=== PATIENT | female | born 1950 | race Caucasian/White ===

== ENCOUNTER → 2017-10-22 | Outpatient (CLI) | payer OTHER ==
[~2017-10-22] MED LIST: ADULT LOW DOSE81 MG PO; ALEVE220 M1 PO; AMOXICILLIN 50500 MG PO; ASPIR 8181 MG PO; ASPIRIN 81 MG T81 MG NG; ATIVAN0.5 M1 PO; AUGMENTIN 875-1 EACH; BACTRIM DS TAB1 EACH PO; BANOPHEN25 MG PO; BENTYL 20 MG TA20 M1 PO; BISAC-EVAC10 MG; CEFUROXIME250 MG PO; CENTRUM SILVER1 EAC1 PO; CEPHALEXIN 250250 M1 PO; CIPROFLOXACIN500 M1 PO; ELAVIL PO; FERROUS SU; FLEET ENEMA RE; HYDROCHLOROTHIA25 M1 PO; HYDROCHLOROTHIA25 M2 PO; HYDROCODON-ACE1 EAC5 PO; HYDROCODON-ACE1 EAC7 PO; HYDROXYCHLOROQ200 M1 PO; HYOSCYAMINE0.125 M1 PO; IMDUR 30 MG TAB30 M1 PO; IRON325; KEFLEX500 MG PO; LEVAQUIN 500 M500 M1 PO; LEVAQUIN 500 M500 M3 PO; LEVAQUIN 750 M750 MG PO; LOPRESSOR PO; LOPRESSOR25 PO; MAGNESIUM400 MG PO; MEDROLDOSEPACK PO; METOPROLOL 50 M50 M1 PO; MIRALAX PO; MIRALAX17 GM PO; MOM PO; MUCINEX TA600 MG/TA2 PO; MULTIVITAMINS PO; MULTIVITAMINS1 EAC7 PO; NEURONTIN 300300 M1 PO; NEURONTIN600 MG PO; NITROQUICK0.4 MG SL; NORCO 5-325 TA1 EACH PO; NORFLEX100 MG PO; NYSTATIN15 GM TOP; OMEPRAZOLE PO; ONDANSETRON HCL4 M2 PO; OXYIR5 MG; PEPCID20 MG PO; PERCOCET PO; PHENAZOPYRIDIN200 M2 PO; PHENERGAN 25 MG25 M1 PO; PHILLIPS' LAXA100 MG PO; PHILLIPS500 MG PO; POTASSIUM CHLO10 ME1 PO; POTASSIUM20; POTASSIUM20 PO; PREDNISONE 10 M10 M1 PO; PREDNISONE 10 M10 MG PO; PREDNISONE 20 M20 MG PO; PROMS25 WY RECTAL; PROTONIX40 M1 PO; PROTONIX40 M2 PO; PULMICORT0.5 MG/22 INH; REQUIP 0.25 M0.25 MG PO; REQUIP 1 MG TABL1 M1 PO; REQUIP1 MG PO; ROBAXIN 750 MG750 MG PO; SIMVASTATIN80 MG PO; SPIRIVA INH; TAMIFLU30 MG PO; TESSALON PERLE100 MG PO; TETRACYCLINE H250 MG PO; TOPROL XL25 MG PO; TOPROL XL50 MG PO; TRANSDERM-SCO1 PATC1 TRANSDERM; VENTOLIN HFA 1818 GM INH; VICODIN 5-5001 EACH PO; VISTARIL50 MG PO; VITAMIN D1000 UNI1 PO; VITAMIN D2000 UNIT PO; ZOCOR40 MG PO; ZOFRAN 4 MG ORAL4 MG PO; ZOFRAN ODT4 MG DISSOLVE; ZOFRAN ODT4 MG PO; ZOFRAN4 MG PO; ZYRTEC10 M5 PO; [UNRECOGNIZED DRUG - OTHER] PO
== END ==
LOC: M.CT 10-21 11:00
DX: Z01.818 Encounter for other preprocedural examination (principal); M19.011 Primary osteoarthritis, right shoulder; I77.810 Thoracic aortic ectasia

== ENCOUNTER 2017-11-19 08:00 | Outpatient (CLI) | payer OTHER ==
[~2017-11-19] VITALS: Ht 157.5 cm; Wt 65.8 kg
[~2017-11-19 08:00] MED LIST changes: -ROBAXIN 750 MG750 MG PO
[2017-11-19 09:27] LABS: ABSOLUTE BASOPHILS 0.1 thou/uL (0.0-0.2); ABSOLUTE EOSINOPHILS 0.2 thou/uL (0.0-0.7); ABSOLUTE LYMPHOCYTES 2.1 thou/uL (0.8-5.3); ABSOLUTE MONOCYTES 0.5 thou/uL (0.0-1.2); ABSOLUTE NEUTROPHILS 2.8 thou/uL (1.6-8.1); BASOPHILS 1.1 %; EOSINOPHILS 3.2 %; HEMATOCRIT 43.2 % (37.0-47.0); HEMOGLOBIN 14.4 gm/dL (12.0-15.0); LYMPHOCYTES 37.1 %; MCH 33.8 pg (26.0-34.0); MCHC 33.3 g/dL (28.0-37.0); MCV 101.4 fL (80.0-100.0); MONOCYTES 8.8 %; MPV 8.6 fl. (7.2-11.1); NUCLEATED RBCS 0 /100WBC; PLATELET COUNT* 255 thou/uL (150-400); POLYS 49.8 %; RBC 4.26 mil/uL (4.20-5.00); RDW-CV 14.3 % (10.5-14.5); WBC 5.6 thou/uL (4.0-11.0)
[2017-11-19 09:36] LABS: APTT 26.3 Seconds (25.0-31.3); INR 1.1; PROTIME 10.4 Seconds (9.20-11.50)
[2017-11-19 09:47] LABS: ALBUMIN 3.8 g/dL (3.4-5.0); CALCIUM 8.7 mg/dL (8.5-10.1); CREATININE 0.9 mg/dL (0.6-1.3); POTASSIUM 3.2 mmol/L (3.5-5.1); TOTAL BILIRUBIN 0.8 mg/dL (<0.1-1.0); TOTAL PROTEIN 7.2 g/dL (6.4-8.2)
[2017-11-19 10:27] LABS: ESR (SEDRATE) 14 mm/hr (0-30)
--- NOTE | 2017-11-19 10:51 | EKG ---
[place] [address] ELECTROCARDIOGRAM REPORT Name: ANGELINA RIVERA Room: PRE IN [facility]#: [id number] Admission: Attend Phys: Sharri Junior Discharge: Date of : 46 Report #: [id number] THIS REPORT FOR: //name// [facility] Test Date: 2017-11-19 Test Time: 09:36:25 Pat Name: ANGELINALULU RIVERA Department: Room: Gender: F Fitting Supervisor: : 1950 Requested By: Alon Perez Order Number: [id number] Reading MD: Janes Salas Measurements Intervals [place] Rate: 71 P: 60 NV: 144 QRS: -34 QRSD: 111 T: 58 QT: 400 QTc: 435 Interpretive Statements Sinus rhythm Left axis deviation Abnormal R-wave progression, early transition Compared to ECG 06/04/2017 01:53:43 Left-axis deviation now present Myocardial infarct finding no longer present Electronically Signed On 11-19-2017 10:51:48 CDT by Janes Salas [email or web address] <ELECTRONICALLY SIGNED> By: Janes Salas MD, [facility] 11/19/17 1051 0936 0936 Janes Salas MD, [facility] /EPI
== END 2017-12-15 14:01 | disposition home or self-care (01) ==
LOC: M.LAB 08:00 → M.PRE 12-04 06:49 → EDSTATUS 12-04 13:45 → M.PRE 12-04 15:38 → M.LAB 12-15 14:01
PROVIDERS: Orthopaedic Surgery
DX: Z01.812 Encounter for preprocedural laboratory examination (principal); M19.011 Primary osteoarthritis, right shoulder

== ENCOUNTER 2018-01-22 06:13 | Inpatient (IN) | payer OTHER ==
[2018-01-07 08:55] LABS: ABSOLUTE EOSINOPHILS 0.1 thou/uL (0.0-0.7); ABSOLUTE LYMPHOCYTES 2.3 thou/uL (0.8-5.3); ABSOLUTE MONOCYTES 0.4 thou/uL (0.0-1.2); ABSOLUTE NEUTROPHILS 2.5 thou/uL (1.6-8.1); BASOPHILS 0.9 %; EOSINOPHILS 1.5 %; HEMATOCRIT 44.6 % (37.0-47.0); HEMOGLOBIN 15.4 gm/dL (12.0-15.0); LYMPHOCYTES 42.8 %; MCH 34.3 pg (26.0-34.0); MCHC 34.6 g/dL (28.0-37.0); MCV 99.2 fL (80.0-100.0); MONOCYTES 7.9 %; MPV 7.9 fl. (7.2-11.1); NUCLEATED RBCS 0 /100WBC; PLATELET COUNT* 282 thou/uL (150-400); POLYS 46.9 %; RBC 4.49 mil/uL (4.20-5.00); RDW-CV 12.4 % (10.5-14.5); WBC 5.3 thou/uL (4.0-11.0)
[2018-01-07 09:05] LABS: ALBUMIN 3.8 g/dL (3.4-5.0); CREATININE 0.9 mg/dL (0.6-1.3); POTASSIUM 3.3 mmol/L (3.5-5.1); TOTAL BILIRUBIN 0.7 mg/dL (<0.1-1.0); TOTAL PROTEIN 7.3 g/dL (6.4-8.2)
[2018-01-07 10:03] LABS: ESR (SEDRATE) 27 mm/hr (0-30)
[~2018-01-22] VITALS: Ht 157.5 cm; Wt 65.8 kg
[2018-02-09 10:13] LABS: ABSOLUTE EOSINOPHILS 0.1 thou/uL (0.0-0.7); ABSOLUTE LYMPHOCYTES 1.8 thou/uL (0.8-5.3); ABSOLUTE MONOCYTES 0.3 thou/uL (0.0-1.2); ABSOLUTE NEUTROPHILS 1.9 thou/uL (1.6-8.1); BASOPHILS 0.9 %; EOSINOPHILS 2.8 %; HEMATOCRIT 41.8 % (37.0-47.0); HEMOGLOBIN 14.2 gm/dL (12.0-15.0); LYMPHOCYTES 42.7 %; MCH 34.7 pg (26.0-34.0); MCHC 33.9 g/dL (28.0-37.0); MCV 102.4 fL (80.0-100.0); MONOCYTES 7.6 %; MPV 7.6 fl. (7.2-11.1); NUCLEATED RBCS 0 /100WBC; PLATELET COUNT* 241 thou/uL (150-400); RBC 4.08 mil/uL (4.20-5.00); RDW-CV 13.6 % (10.5-14.5); WBC 4.1 thou/uL (4.0-11.0)
[2018-02-09 10:25] LABS: APTT 25.6 Seconds (25.0-31.3); PROTIME 9.7 Seconds (9.20-11.50)
[2018-02-09 10:29] LABS: CALCIUM 9.2 mg/dL (8.5-10.1); CREATININE 0.9 mg/dL (0.6-1.3); TOTAL BILIRUBIN 0.4 mg/dL (<0.1-1.0); TOTAL PROTEIN 7.6 g/dL (6.4-8.2)
[2018-02-09 12:11] LABS: ESR (SEDRATE) 14 mm/hr (0-30)
[2018-02-26 07:00] VITALS: BP 131/83
[2018-02-26 11:20] VITALS: BP 126/74
[2018-02-26 16:28] VITALS: BP 126/74; BP 131/74
--- NOTE | 2018-02-26 20:18 | NUR ---
ASSUMED CARES OF PT AT 1118 FROM PACU. PT IN BED, BED IN LOW LOCKED POSITION, CALL BUTTON AND PERSONAL ITEMS IN PT REACH. PT A&O X4, HRRR PER AUSCULTATION, LCTAB, VSS ON 3L O2 NC, AFEBRILE, PERRLA. SCOTT HOSE BILATERALLY, SCD'S ACTIVE BILATERALLY, ICE BAGS (2) ON RIGHT SHOULDER SURGICAL SITE WITH MEPILEX AG DRESSING IN PLACE, C/D/I. RIGHT SHOULDER SLING FOR STABILIZATION AND COMFORT. HX OF ALCOHOL USE, ALCOHOL ON BREATH WHEN PT ARRIVED FOR SURGERY THIS MORNING. PT UP WITH ASSIST TO CHAIR/EARLY AMBULATION PO DAY 1. PT DID GET UP TO BSC THIS SHIFT, ONE MILD ASSIST. LAST BM YESTERDAY. DR. TAMIKO WOODALL SURGEON, OT, PT AND RT CONSULTED. HOURLY ROUNDING COMPLETED. REPORT TO WINCH DERRICK OPERATOR FOR CONTINUED CARES. PT REPORTS SOME NAUSEA. IVP COMPAZINE ADMINISTERED WITH DILAUDID FOR PAIN, EFFECTIVE. PT ENCOURAGED TO TAKE DEEP BREATHS. PT REMAINS STABLE AND COOPERATIVE AND PLEASANT AT SHIFT CHANGE.BED ALARM ACTIVE.
[2018-02-26 22:50] VITALS: BP 140/86
[2018-02-27 00:21] VITALS: BP 95/53
[2018-02-27 02:56] LABS: HEMATOCRIT 36.3 % (37.0-47.0); HEMOGLOBIN 12.5 gm/dL (12.0-15.0)
[2018-02-27 04:30] VITALS: BP 97/60
--- NOTE | 2018-02-27 06:33 | NUR ---
ALERT AND ORIENTED X4. UP WITH 1 ASSIST TO BEDSIDE COMMODE. HAS RIGHT ARM IN SLING. RIGHT SHOULDER DRESSING DRY AND INTACT. HAS ICE PACKS TO RIGHT SHOULDER. VOIDED WITHOUT DIFFICULTY. HAS GOOD CAPILLARY REFILL IN RIGHT FINGERS. 2 FINGERS STILL NUMB ON RIGHT HAND. CALL LIGHT WITHIN REACH.
[2018-02-27 08:00] VITALS: BP 92/53
--- NOTE | 2018-02-27 11:39 | NUR ---
Pt is A&O. Active and independent. Pt resides at home alone, stated that her in November. Pt reports having a strong support sx that is available to assist as needed. Pt has a cane, cpap, and neb at home. Pt reports that she doesn't use her cpap as much as she should, but stated that she plans to begin using it more. No hx of SNF. Pt wants HH at sd, and wants to use [facility] p:[phone], f:[phone]. At sd, HH orders, facesheet, H&P and op report will need to be faxed to [facility]. Anticipate sd tomorrow. Following.
[2018-02-27 16:15] VITALS: BP 98/63
--- NOTE | 2018-02-27 18:16 | NUR ---
PATIENT ALERT AND ORIENTED X 4. VITAL SIGNS STABLE ON ROOM AIR. AFEBRILE. PERRLA. UP WITH STAND BY ASSIST TO THE BATHROOM. PATIENT SAT UP IN CHAIR MOST OF THE DAY. IV PATENT AND SALINE LOCKED. DENIES NAUSEA. PAIN BEING MANAGED WITH PO PAIN MEDICATIONS. SCOTT HOSE AND FOOT PUMPS IN PLACE BILATERALLY. DRESSING TO RIGHT SHOULDER IN PLACE AND CLEAN, DRY, AND INTACT. HOURLY ROUNDS MAINTAINED THROUGHOUT THE SHIFT. CALL LIGHT WITHIN REACH. NURSING WILL CONTINUE TO MONITOR.
[2018-02-27 20:00] VITALS: BP 108/63
[2018-02-28 00:51] VITALS: BP 146/82
--- NOTE | 2018-02-28 05:59 | NUR ---
PATIENT REMAINS ALERT AND ORIENTED X4 THROUGHOUT SHIFT. VITAL SIGNS STABLE ON ROOM AIR. IV PATENT AND SALINE LOCKED IN THE LEF AC. RIGHT ARM IMMOBLILIZER IN PLACE. REGULAR DIET MAINTAINED. REPOSITNING SELF IN BED. PAIN MANAGED WITH PO MEDICATION PER ORDERS. DENIES NAUSEA. RESTING COMFORABLY THROUGHOUT SHIFT. HOURLY ROUNDING COMLETE. CALL LIGHT WITHIN REACH. NURSING WILL CONTINUE TO MONITOR.
[2018-02-28 10:09] VITALS: BP 105/71
[2018-02-28 12:00] VITALS: BP 105/71
[2018-02-28 12:09] VITALS: BP 105/71
[2018-02-28 12:15] VITALS: BP 105/71
--- NOTE | 2018-02-28 13:09 | NUR ---
0710-ASSUMED CARE OF PT, PT RESTING COMFORTABLY IN BED AT THIS TIME. 1240-HOURLY ROUNDING MAINTAINED THIS SHIFT. PT DISCHARGED TO HOME WITH 2 PRESCRIPTIONS. PT VERBALIZED UNDERSTANDING OF DISCHARGE INSTRUCTIONS INCLUDING BUT NOT LIMITED TO MOVEMENT AND WEIGHTBEARING OF SHOULDER. PT ASSISTED BY LOCAL COMPANY TANKER DRIVER TO PERSONAL VEHICLE VIA WHEELCHAIR AT THIS TIME.
--- NOTE | 2018-03-17 12:00 | OP ---
[address] [address] OPERATIVE REPORT Name: ANGELINA RIVERA Room: [address]#: [id number] Admission: 02/26/18 Attend Phys: Sharri Junior Discharge: 02/28/18 Date of : 46 Report #: [id number] THIS REPORT FOR: //name// CC: Alon Dee DICTATED BY: Ludwin Jacobson DO DATE OF SERVICE: 02/26/2018 PREOPERATIVE DIAGNOSIS: Right shoulder rotator cuff tear arthropathy. POSTOPERATIVE DIAGNOSIS: Right shoulder rotator cuff tear arthropathy. SURGEON: Alon Perez DO CYLINDER TESTER: Ludwin Jacobson DO SECOND CYLINDER TESTER: Avni Morales DO ANESTHESIA: General and interscalene block. ESTIMATED BLOOD LOSS: 100 mL. SPECIMENS: None. COMPLICATIONS: None. ANTIBIOTICS: 1. Ancef 1 gram IV preop. ORTHOPEDIC IMPLANTS: 1. Tornier standard humeral stem size 2B, angle 132.5 degrees. 2. Tornier reversed insert ultra-high molecular weight polyethylene, 36 mm, +6 mm thickness. 3. Tornier threaded post-baseplate, 25 mm. 4. Tornier eccentric glenosphere, 36 mm. INDICATION FOR PROCEDURE: The patient is a 67-year-old female who has had ongoing right shoulder pain. She has underlying rheumatoid arthritis and has developed cuff tear arthropathy. She has x-rays demonstrating superior migration of the humeral head. She has pain, positive drop arm test, is developing some pseudoparalysis with inability to lift her arm overhead. She does have a positive Lawrence, positive Neer's test. Given her radiographic findings and clinical exam, it is recommended she would be a candidate for [address] [address] OPERATIVE REPORT Name: ANGELINA RIVERA Room: [address]#: [id number] Admission: 02/26/18 Attend Phys: Sharri Junior Discharge: 02/28/18 Date of : 46 Report #: [id number] reverse total shoulder arthroplasty. All risks, benefits, complications, indications, alternatives were reviewed with the patient and she wished to proceed. PROCEDURE DESCRIPTION: The patient was brought to the operative suite after receiving interscalene block in the preoperative holding area. At that time, she was positioned in approximately 45 degrees in the beach chair position. The right upper extremity was sterilely prepped and draped in sterile fashion. Timeout was then taken to ensure correct patient, procedure, operative site, everybody in the room was in agreeance. At that time, a 10 blade scalpel was used to make a skin incision over the lateral aspect of the coracoid down the arm. Skin and subcutaneous tissue were dissected. Metzenbaum scissors were then used to develop the deltopectoral interval. The cephalic vein retracted laterally. Once this was developed and we reached the anterior aspect of the humeral head, the intertubercular groove was found. The biceps tendon was not present as there had been a previous biceps tenotomy. The groove was, however, entered and dissection was carried to the rotator interval to the superior glenoid. Once this was done, a peel-back technique was used to the subscapularis. The shoulder was externally rotated and the humeral head was dislocated with capsule dissected off the inferior neck. Care taken to stay on bone. Once this was done, the intramedullary canal was found and a 132.5 degree cutting guide was set at 30 degrees of retroversion. Cut was made freehand with the saw. Once this cut was finished, the proximal humerus was broached up to a size 2. This broach was left in place and calcar reamer was used to resurface the surrounding bone. At that point, we addressed the glenoid. We obtained a glenoid exposure. We excised her labrum with Bovie electrocautery. We then used the drill pin guide and centered our drill pin, left drill pin in line with the scapular spine. Due to the wear pattern, we positioned our drill pin in a manner that would eccentrically ream anteriorly and inferiorly. Once a sterile pin was then placed, we then reamed over our drill pin until there subchondral bone was encountered. At this point, our baseplate center hole was drilled 25 mm and a threaded baseplate was secured in place. We then placed two 29 mm locking screws at approximately the 1 o'clock and the 7 o'clock position. Once these were in place, we then chose to use an eccentric glenosphere to move our center rotation more inferior to help prevent scapular notching. Once this was in place, we then removed our trial broach from the humerus. We chose an eccentric tray to provide us a better position and bone coverage of her proximal humerus. The final implant was built on the back table and we chose to use a final 6 mm thick 36 mm polyethylene insert, which gave us excellent stability when we used a trial. While trialing, there was no concern for dislocation even at the extremes of external rotation and excellent tension of the conjoined tendon and deltoid muscle fibers. Once the final implant was assembled on the back table, wound was thoroughly irrigated. Final implant was malleted in place and a final 6 mm polyethylene insert was placed malleted with the locking ring engaging. The shoulder was reduced once more and had excellent range of motion, excellent stability with no concerns or dislocation. We [place] [address] OPERATIVE REPORT Name: MIGUELANGELINA L Room: [address]#: [id number] Admission: 02/26/18 Attend Phys: Sharri Junior Discharge: 02/28/18 Date of : 46 Report #: [id number] once more, closed the deeper subcutaneous layer followed by subcutaneous layer of 2-0 Vicryl and then a running 3-0 Stratafix and Dermabond glue. Mepilex dressing was applied. The patient was placed in a sling, awoken from anesthesia and brought to the PACU in stable condition. <ELECTRONICALLY SIGNED> By: Gio John DO 03/17/18 1200 1007 Berhane Perez DO /nt
== END 2018-02-28 12:40 | disposition home or self-care (01) | DRG 483 ==
LOC: M.PRE 06:13 → M.TBA 02-26 06:05 → M.PRE 02-26 06:52 → M.ORTHSURG 02-26 11:31 → M.PRE 02-26 12:05 → M.ORTHSURG 02-28 12:40
PROVIDERS: Orthopaedic Surgery; ADMIT Internal Medicine
PROC: 0RRJ00Z Replacement of Right Shoulder Joint with Reverse Ball and Socket Synthetic Substitute, Open Approach (ICD-10-PCS; principal; 2018-02-26)
DX: M19.011 Primary osteoarthritis, right shoulder (principal); M75.101 Unspecified rotator cuff tear or rupture of right shoulder, not specified as traumatic; I10 Essential (primary) hypertension; G25.81 Restless legs syndrome; J44.9 Chronic obstructive pulmonary disease, unspecified; K21.9 Gastro-esophageal reflux disease without esophagitis; E78.5 Hyperlipidemia, unspecified; M06.9 Rheumatoid arthritis, unspecified; Z90.710 Acquired absence of both cervix and uterus; Z90.13 Acquired absence of bilateral breasts and nipples; Z90.49 Acquired absence of other specified parts of digestive tract; Z90.79 Acquired absence of other genital organ(s); Z90.721 Acquired absence of ovaries, unilateral; Z87.891 Personal history of nicotine dependence; Z79.899 Other long term (current) drug therapy; Z88.6 Allergy status to analgesic agent; Z91.041 Radiographic dye allergy status; Z88.5 Allergy status to narcotic agent; Z88.8 Allergy status to other drugs, medicaments and biological substances; Z91.018 Allergy to other foods

== ENCOUNTER 2018-07-18 14:32 | Emergency (ER) | payer OTHER ==
[~2018-07-18] VITALS: Ht 157.5 cm; Wt 65.8 kg
[2018-07-18 15:36] LABS: CALCIUM 8.8 mg/dL (8.5-10.1); CREATININE 0.8 mg/dL (0.6-1.3)
[2018-07-18 15:38] LABS: POTASSIUM 2.7 mmol/L (3.5-5.1)
[2018-07-18 15:40] LABS: ALBUMIN 3.7 g/dL (3.4-5.0); TOTAL BILIRUBIN 0.8 mg/dL (<0.1-1.0); TOTAL PROTEIN 6.8 g/dL (6.4-8.2)
[2018-07-18] MEDS ORDERED: ROBAXIN 750 MG750 MG PO (16:52)
[2018-07-18 17:17] LABS: URINE BILIRUBIN NEGATIVE (Negative); URINE BLOOD 1+ (Negative); URINE CLARITY CLEAR; URINE COLOR YELLOW; URINE GLUCOSE-RANDOM NEGATIVE (Negative); URINE KETONES NEGATIVE (Negative); URINE LEUKOCYTES-REFLEX TRACE (Negative); URINE NITRITE-REFLEX NEGATIVE (Negative); URINE PROTEIN NEGATIVE (Negative); URINE SPECIFIC GRAVITY 1.015 (1.005-1.030); URINE UROBILINOGEN 0.2 E.U./dl (0.2-1.0)
[2018-07-18 17:35] LABS: BACTERIA-REFLEX 1-9 Few /HPF (None Seen); SQUAMOUS 0-3 Few /LPF (0-3); URINE WBC-REFLEX 0-5 Rare /HPF (0-5)
[2018-07-18 17:52] VITALS: BP 234/90
== END 2018-07-18 17:53 | disposition home or self-care (01) ==
LOC: M.ERS 14:32
PROVIDERS: Nurse Practitioner Family
DX: M62.838 Other muscle spasm (principal); E87.6 Hypokalemia; I10 Essential (primary) hypertension; K21.9 Gastro-esophageal reflux disease without esophagitis; J44.9 Chronic obstructive pulmonary disease, unspecified; Z88.5 Allergy status to narcotic agent; Z91.041 Radiographic dye allergy status; Z88.6 Allergy status to analgesic agent; Z88.8 Allergy status to other drugs, medicaments and biological substances; Z91.018 Allergy to other foods; Z87.440 Personal history of urinary (tract) infections; Z89.021 Acquired absence of right finger(s); Z90.49 Acquired absence of other specified parts of digestive tract

== ENCOUNTER → 2018-09-10 | Outpatient (CLI) | payer OTHER ==
[~2018-09-10] MED LIST changes: +ROBAXIN 750 MG750 MG PO
== END ==
LOC: M.CT 14:32
DX: R22.0 Localized swelling, mass and lump, head (principal)

== ENCOUNTER 2018-10-22 16:22 | Inpatient (IN) | payer OTHER ==
[~2018-10-22] VITALS: Ht 157.5 cm; Wt 156.4 kg
[2018-10-22 16:26] VITALS: BP 122/79
[2018-10-22 17:05] LABS: HEMATOCRIT 36.4 % (37.0-47.0); HEMOGLOBIN 12.6 gm/dL (12.0-15.0); MCH 34.8 pg (26.0-34.0); MCHC 34.5 g/dL (28.0-37.0); MCV 101.1 fL (80.0-100.0); MPV 7.7 fl. (7.2-11.1); NUCLEATED RBCS 0 /100WBC; PLATELET COUNT* 150 thou/uL (150-400); RDW-CV 13.5 % (10.5-14.5); WBC 2.7 thou/uL (4.0-11.0)
[2018-10-22 17:21] LABS: ANION GAP 12 mmol/L (7-16); BUN 15 mg/dL (7-18); CHLORIDE 97 mmol/L (98-107); CO2 25 mmol/L (21-32); CREATININE 0.7 mg/dL (0.6-1.3); GLUCOSE 108 mg/dL (70-99); SODIUM 134 mmol/L (136-145); TROPONIN-I LEVEL <0.06 ng/mL (<0.06)
[2018-10-22 17:28] LABS: ALBUMIN 3.3 g/dL (3.4-5.0); ALKALINE PHOSPHATASE 79 U/L (46-116); NT-PRO BRAIN NAT PEPTIDE 105 pg/mL (<300); SGOT 56 U/L (15-37); SGPT 76 U/L (30-65); TOTAL BILIRUBIN 0.3 mg/dL (<0.1-1.0); TOTAL PROTEIN 6.7 g/dL (6.4-8.2)
[2018-10-22 17:34] LABS: ABSOLUTE BASOPHILS 0.1 thou/uL (0.0-0.2); ABSOLUTE LYMPHOCYTES 1.5 thou/uL (0.8-5.3); ABSOLUTE MONOCYTES 0.1 thou/uL (0.0-1.2)
[2018-10-22 17:35] LABS: PLATELET ESTIMATE ADEQUATE
[2018-10-23] VITALS (7 sets, daily range): BP systolic 133–156; BP diastolic 70–86
[2018-10-23 04:37] LABS: HEMATOCRIT 37.8 % (37.0-47.0); HEMOGLOBIN 13.2 gm/dL (12.0-15.0); MCH 35.1 pg (26.0-34.0); MCHC 34.9 g/dL (28.0-37.0); MCV 100.6 fL (80.0-100.0); MPV 8.1 fl. (7.2-11.1); RBC 3.75 mil/uL (4.20-5.00); RDW-CV 13.5 % (10.5-14.5)
[2018-10-23 04:54] LABS: CALCIUM 8.4 mg/dL (8.5-10.1); CREATININE 0.8 mg/dL (0.6-1.3); MAGNESIUM 1.1 mg/dL (1.8-2.4); POTASSIUM 3.1 mmol/L (3.5-5.1)
[2018-10-23 04:59] LABS: WBC 1.6 thou/uL (4.0-11.0)
[2018-10-23 09:18] LABS: ALBUMIN 3.5 g/dL (3.4-5.0); DIRECT BILIRUBIN 0.2 mg/dL (<0.1-0.3); TOTAL BILIRUBIN 0.4 mg/dL (<0.1-1.0); TOTAL PROTEIN 6.6 g/dL (6.4-8.2)
[2018-10-23 15:43] LABS: URINE BILIRUBIN NEGATIVE (Negative); URINE BLOOD TRACE (Negative); URINE CLARITY CLEAR; URINE COLOR YELLOW; URINE GLUCOSE-RANDOM 1+ (Negative); URINE KETONES NEGATIVE (Negative); URINE LEUKOCYTES-REFLEX NEGATIVE (Negative); URINE NITRITE-REFLEX NEGATIVE (Negative); URINE PROTEIN NEGATIVE (Negative); URINE SPECIFIC GRAVITY <= 1.005 (1.005-1.030); URINE UROBILINOGEN 0.2 E.U./dl (0.2-1.0)
--- NOTE | 2018-10-23 17:45 | NUR ---
DR BARNETT CALLED BACK AT 1730, NOTIFIED HIM OF PT HAVING LEFT UPPER CP 2/10, PRIOR 3 TROPONIN TESTS NEGATIVE, 2ND EKG DONE AND NO CHANGES FROM FIRST EKG, DR CHAVEZ SIGNED AND NOTED EKG. NEW ORDERS RECEIVED FROM DR BARNETT, NITRO 0.4MG SUBLINGUAL X1 NOW, AND TROPONIN TEST; CARDIOLOGY CONSULT ONLY NEEDED IF CHEST PAIN PERSISTS FOR POSSIBLE STRESS TEST IN AM. VERBALIZED UNDERSTANDING. WILL CONTINUE TO MONITOR PT CLOSELY
--- NOTE | 2018-10-23 18:53 | NUR ---
PT ADMITTED ON TELE FLOOR ON STRETCHER. PT AOX4 SR ONCARDIAC MONITOR. VSS. ON 2 L NC. PT PLEASANT. ADMISSION HX DONE. NS INFUSING. BANANA BAG INFUSING. IV LINE PATENT. WILL GIVE REPORT TO RECORDS CLERK NURSE
[2018-10-24] VITALS: BP 148/83
--- NOTE | 2018-10-24 01:49 | NUR ---
ADMIT FROM ED TRANSFER, RECIEVED REPORT AND ASSUMED CARE AT 1900. PT ARRIVED TO FLOOR AT 1830 AND WAS TUCKED IN BY DAYSHIFT. ASSISTANT PROFESSOR OF RADIOLOGY IN PLACE. VITAL SIGNS ARE STABLE. PT DENIES ANY PAIN AT THIS TIME. ASSESSMENT COMPLETED AND DISCUSSED PLAN OF CARE, PT UNDERSTANDS. PT IS UP [facility] STANDBY ASSIST. BED LOCKED AND CALL LIGHT WITHIN REACH. FALL PRECAUTIONS IN PLACE. HOURLY ROUNDING DONE AND ALL NEEDS MET. NURSING WILL CONTINUE TO MONITOR.
[2018-10-24 03:09] LABS: GLYCOHEMOGLOBIN (HGB A1C) 5.8 % (4.8-5.6)
[2018-10-24 04:00] VITALS: BP 140/77
--- NOTE | 2018-10-24 09:07 | CON ---
[address] [address] CONSULTATION Name: ANGELINA RIVERA Room: [address] IN M.R.#: [id number] Admission: 10/22/18 Attend Phys: Disha Ortega MD Discharge: Date of : 46 Report #: [id number] THIS REPORT FOR: //name// CC: Consuelo Ortega DATE OF SERVICE: 10/23/2018 ATTENDING PHYSICIAN: Dr. Ortega. REASON FOR EVALUATION: Oral lesions, question whether these are secondary to viral or fungal etiology. HISTORY OF PRESENT ILLNESS: Chart reviewed, patient examined. This is a 68-year-old woman with noted history of rheumatoid arthritis, who has a lengthy history of adverse and perhaps hypersensitivity related drug effects. She was initially started on methotrexate due to exacerbation of rheumatoid arthritis. Within the last week, she developed chest discomfort as well as facial swelling. She noted intraoral lesions, tongue swelling, sore throat for 5-6 days. Due to the fact she thought it was worsening, she did present. It is not clear she had any fevers or chills. Appetite has been diminished. Denies dyspnea. During the evaluation, was found to have leukopenia, the ANC around 1000 initially. She was initially started on methylprednisolone. It is notable she has taken prednisone on several occasions for what felt to be drug hypersensitivities. At this point, she is not encephalopathic. She appears somewhat ill, not toxic. ALLERGIES: LISTED TO IODINE, LIDOCAINE, MORPHINE, CODEINE, ASPIRIN, FENTANYL, ONDANSETRON, ARFORMOTEROL, METHOTREXATE AND HONEY. CURRENT MEDICATIONS: Include metoprolol, cholecalciferol, acyclovir was started, gabapentin, pantoprazole, methylprednisolone, fluconazole, famotidine, diphenhydramine, enoxaparin, gabapentin, ropinirole, atorvastatin, loratadine, methocarbamol, vitamins. PAST MEDICAL HISTORY: History of recurrent urinary tract infection, most recently within the last couple of weeks, was treated with Bactrim. She typically has to take diphenhydramine to counteract hypersensitivity. She does have rheumatoid arthritis, hypertension, reflux, COPD, previous spinal nerve stimulator, history of pancreatitis, previous finger amputation, hysterectomy, cholecystectomy, appendectomy. SOCIAL HISTORY: Occasional ethanol, nonsmoker. No illicit drug use. FAMILY HISTORY: Noncontributory. REVIEW OF SYSTEMS: Otherwise, unremarkable 10-point [place] [address] CONSULTATION Name: ANGELINA RIVERA Marcos Room: [address]#: [id number] Admission: 10/22/18 Attend Phys: Disha Ortega MD Discharge: Date of : 46 Report #: [id number] above history of present illness. PHYSICAL EXAMINATION: GENERAL: She does appear ill, somewhat chronically. She is undernourished. She is pleasant and cooperative. VITAL SIGNS: Temperature 98.9, pulse 58, respirations 16, blood pressure 150/79. SKIN: Warm. HEENT: Remarkable for there is some residual facial swelling, in particular periorbital site, some superficial mucosal lesions. I do not appreciate any thrush at this point. Normocephalic. Extraocular muscles intact. NECK: Supple. LUNGS: Generally clear to auscultation. Somewhat diminished. HEART: Regular. I do not appreciate any murmur. ABDOMEN: Soft, nontender, nondistended. EXTREMITIES: No cyanosis. GENITOURINARY: Deferred. RECTAL: Deferred. LABORATORY DATA: Sodium 134, potassium 3.0, chloride 97, bicarbonate is 25, anion gap of 12, BUN and creatinine 15 and 0.7, glucose of 108. LFTs: AST of 56, ALT of 76, total protein 6.7, albumin 3.3. CBC: White count was initially 2.7, on repeat was 1.6. H and H 13.2 and 37.8, platelets are 131. Troponin level less than 0.06. ASSESSMENT: Suspected immune related drug effects secondary to methotrexate. Agree with corticosteroids short term. We will continue the treatment. She is at risk for infectious complications given the neutropenia, I suspect again related to the adverse drug effect. We will recheck her urine at this point and make sure that is cleared. With mildly elevated LFTs, we will check hepatitis profile including specifically hepatitis C antibody as a screening measure and see how she does clinically. Certainly, she has a complicated clinical picture. <ELECTRONICALLY SIGNED> By: Foster Mota MD 10/24/18 0907 1015 2127Joruba Mota MD /nt
[2018-10-24 09:15] VITALS: BP 173/99
--- NOTE | 2018-10-24 09:45 | NUR ---
REC'D REPORT FROM NOC RN, ASSUMED CARE OF PT APPROX 0730. A&OX4, ABLE TO COMMUNICATE NEEDS TO STAFF. UP AD LITTLE. ASSESSMENT COMPLETED, VS OBTAINED. LOAN COORDINATOR IN PLACE, SR. O2 SATS 97% RA. CALL LIGHT WITHIN REACH. HOURLY ROUNDING FOR SAFETY AND PT NEEDS.
[2018-10-24 12:26] VITALS: BP 156/88
[2018-10-24 13:40] LABS: HEMATOCRIT 36.3 % (37.0-47.0); HEMOGLOBIN 12.4 gm/dL (12.0-15.0); MCH 35.2 pg (26.0-34.0); MCHC 34.1 g/dL (28.0-37.0); MCV 103.3 fL (80.0-100.0); MPV 8.7 fl. (7.2-11.1); NUCLEATED RBCS 0 /100WBC; PLATELET COUNT* 114 thou/uL (150-400); RBC 3.51 mil/uL (4.20-5.00); RDW-CV 13.6 % (10.5-14.5); WBC 4.2 thou/uL (4.0-11.0)
[2018-10-24 14:50] LABS: ABSOLUTE LYMPHOCYTES 0.8 thou/uL (0.8-5.3); ABSOLUTE MONOCYTES 0.2 thou/uL (0.0-1.2); ABSOLUTE NEUTROPHILS 3.2 thou/uL (1.6-8.1)
[2018-10-24 14:53] LABS: MACROCYTES 1+; PLATELET ESTIMATE DECREASED
[2018-10-24 16:00] VITALS: BP 148/73
--- NOTE | 2018-10-24 16:30 | EKG ---
[place] [address] ELECTROCARDIOGRAM REPORT Name: ANGELINA RIVERA Room: [address] ADM IN M.R.#: [id number] Admission: 10/22/18 Attend Phys: Disha Ortega MD Discharge: Date of : 46 Report #: [id number] THIS REPORT FOR: //name// [facility] ED Test Date: 2018-10-22 Test Time: 16:29:47 Pat Name: ANGELINALULU RIVERA Department: Room: [facility] Gender: F Waste Collection Driver: Kaylie STINSON : 1950 Requested By: Alexandrea Jenkins Order Number: [id number] MD: Tariq Dias Measurements Intervals [place] Rate: 72 P: 25 DE: 138 QRS: -23 QRSD: 88 T: 23 QT: 385 QTc: 422 Interpretive Statements Sinus rhythm Left axis deviation Nonspecific T abnormalities, anterior leads Baseline wander in lead(s) V6 Compared to ECG 11/19/2017 09:36:25 T-wave abnormality now present Electronically Signed On 10-24-2018 16:30:29 OIL WINTERIZER by Tariq Dias [email or web address] <ELECTRONICALLY SIGNED> By: Tariq Dias MD, FACC 10/24/18 1630 1629 1629 Tariq Dias MD, [facility] /EPI
--- NOTE | 2018-10-24 16:35 | EKG ---
[place] [address] ELECTROCARDIOGRAM REPORT Name: ANGELINA RIVERA Room: [address] ADM IN .R.#: [id number] Admission: 10/22/18 Attend Phys: Disha Ortega MD Discharge: Date of : 46 Report #: [id number] THIS REPORT FOR: //name// [facility] ED Test Date: 2018-10-23 Test Time: 17:26:44 Pat Name: ANGELINA RIVERA Department: Room: [facility] Gender: F Follow Up Clerk: : 1950 Requested By: Jalen Barker Order Number: [id number] MD: Tariq Dias Measurements Intervals [place] Rate: 66 P: 32 CA: 138 QRS: -18 QRSD: 90 T: 18 QT: 422 QTc: 443 Interpretive Statements Sinus rhythm Left axis deviation Nonspecific T abnormalities, anterior leads Compared to ECG 11/19/2017 09:36:25 T-wave abnormality now present Electronically Signed On 10-24-2018 16:35:42 DIGITAL PHOTO PRINTER by Tariq Dias [email or web address] <ELECTRONICALLY SIGNED> By: Tariq Dias MD, FAC 10/24/18 1635 1726 1726 Tariq Dias MD, [facility] /EPI
--- NOTE | 2018-10-24 19:00 | NUR ---
RECEIVED SWISH AND SWALLOW FOR ORAL PAIN FROM PHARMACY. PLACED SMALL AMOUNT OF FLUID ON PT'S TONGUE TO OBSERVE FOR POSSIBLE ALLERGIC REACTION. PT REPORTED NO SYMPTOMS OF ITCHING, SWELLING. ADMINISTERED MEDICATION TO PT. LATER PT REPORTED MILD ITCHING IN HER HANDS AND TOP OF MOUTH BUT STATED IT WAS TOLERABLE. REPORTED TO NOC RN TO WATCH FOR ANY REACTION AFTER NEXT DOSE.
[2018-10-24 20:00] VITALS: BP 166/91
[2018-10-25] VITALS: BP 147/75
--- NOTE | 2018-10-25 02:15 | NUR ---
RECIEVED REPORT AND ASSUMED CARE AT 1900. ALMOND BLANCHER OPERATOR IN PLACE. BP ELEVATED, OTHER THAN THAT VITAL SIGNS STABLE. PT UP WITH STANDBY ASSIST. PT HAS BACK AND HIP PAIN AND PRN PAIN MEDS GIVEN ORDERED. PTs IV INFILTRATED AND UNABLE TO REINSERT IV SO CHANGED ALL IV MEDS TO PO AND DC'D IV. ASSESSMENT COMPLETED DISCUSSED PLAN OF CARE, AND PT UNDERSTANDS. BED LOCKED AND CALL LIGHT WITHIN REACH. FALL PRECAUTIONS IN PLACE. HOURLY ROUNDING DONE AND ALL NEEDS MET. NURSING WILL CONTINUE TO MONITOR.
[2018-10-25 04:00] VITALS: BP 145/78
[2018-10-25 05:16] LABS: ABSOLUTE LYMPHOCYTES 0.6 thou/uL (0.8-5.3); ABSOLUTE MONOCYTES 0.3 thou/uL (0.0-1.2); ABSOLUTE NEUTROPHILS 3.5 thou/uL (1.6-8.1); HEMATOCRIT 37.1 % (37.0-47.0); LYMPHOCYTES 13.5 %; MCH 35.5 pg (26.0-34.0); MCV 101.5 fL (80.0-100.0); MONOCYTES 7.5 %; MPV 8.9 fl. (7.2-11.1); NUCLEATED RBCS 0 /100WBC; PLATELET COUNT* 103 thou/uL (150-400); RBC 3.65 mil/uL (4.20-5.00); RDW-CV 13.5 % (10.5-14.5); WBC 4.4 thou/uL (4.0-11.0)
[2018-10-25 05:52] LABS: ALBUMIN 3.1 g/dL (3.4-5.0); CALCIUM 8.5 mg/dL (8.5-10.1); CREATININE 0.8 mg/dL (0.6-1.3); MAGNESIUM 1.7 mg/dL (1.8-2.4); TOTAL BILIRUBIN 0.4 mg/dL (<0.1-1.0); TOTAL PROTEIN 6.2 g/dL (6.4-8.2)
[2018-10-25 08:00] VITALS: BP 154/92
--- NOTE | 2018-10-25 08:00 | NUR ---
ASSUMED PT CARE AT 0700, PT LYING IN BED, CALL LIGHT IN REACH, CONT ON NEUTROPENIC PRECAUTIONS. PT CONT ON PO MEDS ONLY RADIO DESPATCHER DISCONTINUED IV AND IV MEDS. PT A&O X4, UP AD LITTLE, REMAINS ON RA, LS CTA, DENIES ANY PAIN/SOA AT THIS TIME. CHEF'S ASSISTANT TRACING SINUS RHYTHM, WILL CONT TO MONITOR THROUGH OUT SHIFT.
[2018-10-25 12:00] VITALS: BP 152/80
[2018-10-25 14:07] LABS: HEPATITIS B SURFACE AG Negative (Negative)
--- NOTE | 2018-10-25 14:11 | NUR ---
Pt is A&O. Resides at home alone. Independent and active. Supportive family. Pt has a cane and cpap at home. No hx of SNF. Hx of [facility] HH. Pt's goal is to return home at ri. Following.
--- NOTE | 2018-10-25 14:25 | NUR ---
RIGHT BASILIC VESSEL ACCESSED FOR 4 RWANDAN SINGLE LUMEN PICC. LINE PRE-TRIMMED TO 36 CM AND ADVANCED TO THE ZERO MRK WITH NO REISISTANCE MET. UPPER ARM CIRCUMFERENCE ABOVE INSERTION SITE= 10 1/2". SHERLOCK MAGNET AND 3CG CONFIRMATION OF TIP TERMINATION AT THE CAVOATRIAL JUNCTION. GUIDEWIRE REMOVED, LINE FLUSHED AND REPORT GIVEN TO MARIANA STEPHENS.
--- NOTE | 2018-10-25 16:51 | NUR ---
A&O X4, UP IN CHAIR FOR MEALS, UP AD LITTLE. PER DR MCCOY, DISCONTINUE NEUTROPENIC PRECAUTIONS AND TELEMETRY, ADMIT TO MED SURG, TAPPING MACHINE OPERATOR REMOVED. PT RECVD 3 DOSES OF POTASSIUM PER ELECTROLYTE PROTOCOL, POTASSIUM LEVEL ORDERED TO BE RE-DRAWN. PT HAD PICC LINE PLACED THIS AM D/T POOR PERIPHERAL PLACEMENT, PT TOLERATED WELL. PT DENIES ANY SOA, VSS, CONT ON RA.
[2018-10-25 20:00] VITALS: BP 160/87
[2018-10-26 00:37] VITALS: BP 142/85
--- NOTE | 2018-10-26 05:28 | NUR ---
Pt a/o x 4. RA. VSS. Up ad jocelynn. Accu-checks ACHS. Denies any discomfort at this time. Pt resting comfortably in bed with eyes closed. NOAH PICC line working properly. Pt refused bed alarm. Fall precautions maintained. Call light within reach. Will continue to monitor.
[2018-10-26 08:00] VITALS: BP 177/100
--- NOTE | 2018-10-26 08:00 | NUR ---
ASSUMED PT CARE AT 0700, PT LYING IN BED, RATING BACK PAIN 5/10, PRN PAIN MEDS GIVEN. A&O X4, UP AD LITTLE, PT C/O URGENCY AND STRESS INCONTINENCE, DR LIAO NOTIFIED, BLADDER SCAN TO BE PERFORMED. HYPERTENSIVE THIS AM PRIOR TO BP MEDS BEING ADMINISTERED, RA, DENIES ANY SOA. WILL CONT POC.
--- NOTE | 2018-10-26 12:43 | NUR ---
Anticipate dc to home tomorrow. Following
[2018-10-26 15:58] VITALS: BP 158/94
--- NOTE | 2018-10-26 18:37 | NUR ---
A&O X4, UP AD LITTLE, VSS, CONT ON RA WITH NO SOA. PT HAVING C/O NAUSEA, BS HYPERACTIVE, NEW ORDERS FOR COMPAZINE RECVD. HOURLY ROUNDING, PAIN ASSESSED AND PRN PAIN MEDS GIVEN NEEDED. PT BLADDER SCANNED D/T C/O URGENCY AND STRESS INCONTINENCE, BLADDER SHOWED 102ML RESIDUAL, NO NEW ORDERS RECEIVED.
[2018-10-26 20:00] VITALS: BP 147/90
[2018-10-27] VITALS: BP 163/94
--- NOTE | 2018-10-27 05:52 | NUR ---
Pt a/o x 4. RA. Up ad jocelynn. C/o chronic back pain, pain meds given per order. VSS. No apparent distress. Pt resting in bed comfortably with eyes closed at this time. Fall precautions maintained. Call light within reach. Will continue to monitor.
[2018-10-27 07:45] VITALS: BP 175/98
[2018-10-27 12:00] VITALS: BP 146/85
--- NOTE | 2018-10-27 12:33 | NUR ---
VSS, ASSUMED CARE IN THE AM, ASSESSMENT PERFORMED AND CHARTED, FALL PRECAUTIONS IN PLACE AND CALL LIGHT LIGHT IN REACH, PT IS TRACING SR ON THE MONITOR WITH PACS, PT IS ON RA, AND UP AD LITTLE, DENIES ANY PAIN, PT GOAL IS TO D/C TODAY, AT THIS TIME PT HAS BEEN GIVEN D/C ORDERS, TOOK OUT IV AND TELE MONITOR, PT HAS BEEN GIVEN D/C INSTRUCTIONS AND DENIES ANY QUESTIONS AT TIME OF D/C PT WAS ALSO GIVEN SCRIPTS. PT IS TO BE TAKEN OUT VIA WHEEL CHAIR TO CAR BY STAFF.
--- NOTE | 2018-10-27 12:42 | NUR ---
VSS, ASSUMED CARE OF PT THIS AM, ASSESSMENT PERFORMED AND CHARTED, FALL PRECAUTIONS IN PLACE AND CALL LIGHT IN REACH, PT IS ON RA AND IS MED-SURG STATUS, PT STATES THAT SHE HAS CHRONIC PAIN WITH PAIN IN ALL PARTS OF BODY, PT STATES SHE IS NOT FEELING WELL WITH COMPLAINTS OF HEADACH, HER GOAL IS TO LOWER HER BLOOD PRESSURE, I MET WITH HER AND LOOKED OVER MEDS AND FIGERED THAT SHE TAKES 75-100 MG OF METOPROLOL A DAY AND WE HAVE BEEN GIVING 50 MG, WE HAVE MADE THE MED CHANGE AND WILL MONITOR HER BP, IT BP IS LOWER TOMORROW THEN SHE SHOULD D/C TO HOME WITH MAYBE H/H FOLLOWING, WILL FOLLOW WITH PLAN OF CARE AND HOURLY ROUNDS.
[2018-10-27 20:58] VITALS: BP 154/88
--- NOTE | 2018-10-27 21:00 | NUR ---
ASSUMED CARE OF PT AT 1900. PT IS ALERT AND ORIENTED. VSS. PERRLA. NO COMPLAINTS OF PAIN. PT IS MED SURG STATUS. PT IS RESTING COMFORTABLY IN BED. RESPIRATIONS ARE EVEN AND NONLABORED. WILL CONTINUE TO MONITOR PT.
--- NOTE | 2018-10-27 22:30 | NUR ---
ASSUMED CARE OF PT AT 2100. PT C/O CHRONIC BACK PAIN. PT UP ADLIB, STEADY GAIT. M/S STATUS. VSS. HOURLY ROUNDING IN [facility]. CLWR.
[2018-10-28] VITALS (7 sets, daily range): BP systolic 169–193; BP diastolic 89–109
--- NOTE | 2018-10-28 02:26 | NUR ---
P TB/P WAS ELEVATED, PRN HYDRALAZINE GIVEN. B/P NOW 169/95.
--- NOTE | 2018-10-28 06:19 | NUR ---
PT SLEPT ON AND OFF T/O THIS SHIFT. B/P HAS BEEN ELEVATED, PRN PO HYDRALAZINE GIVEN WITH LITTLE IMPROVEMENT. ALL OTHER VSS. PT CONTINUES TO BE UP AD LITTLE WITH STEADY GAIT. CLWR.
[2018-10-28] MEDS ORDERED: CYCLOBENZAPRINE5 MG PO (09:26)
[2018-10-28] MEDS ORDERED: DIFLUCAN200 MG PO (09:26)
[2018-10-28] MEDS ORDERED: PREDNISONE 10 M10 MG PO (09:26)
[2018-10-28] MEDS ORDERED: AMLODIPINE BESYL5 M1 PO (09:26)
--- NOTE | 2018-10-28 10:15 | NUR ---
ASSUMED CARE OF PT THIS AM AROUND 714- MS STATUS IN PLACE AND MAINTAINED ORDERED- UPON ASSESSMENT PT NOTED TO BE RESTING IN BED- PT A&O X4- CONTINENT OF BOWEL AND BLADDER- UP AD-LITTLE IN ROOM, STEADY GAIT NOTED- LCTA, RESP EVEN AND UN-LABORED- VSS, O2 SAT 98% ON RA- ABD SOFT/ROUND/NON-TENDER, BS X4 QUADS- PT REPORTS LAST BM 10/27/18- RUE SINGLE LUMEN PICC NOTED, AND SL- GOOD PO INTAKE NOTED THIS AM WITH BREAKFAST- BS MONITORED ORDERED- PT REPORTS PAIN 03/09 TO BACK, REPOSITIONING/WALKING EFFECTIVE IN PAIN RELIEF- CALL LIGHT AND PERSONAL BELONGINGS WITH IN REACH- HOURLY ROUNDS IN PLACE R/T SAFETY/NEEDS- ALL NEEDS MET AT THIS TIME-WCTM
--- NOTE | 2018-10-28 10:30 | NUR ---
Pt discharging to home today with [facility], faxed dc orders.
--- NOTE | 2018-10-28 11:43 | NUR ---
ORDERS RECIEVIED FOR OKAY TO D/C HOME WITH HH THIS SHIFT PER - CM HERE TO [facility]RANGE HH PRIOR TO D/C FOR PT-RUE PICC D/C'D PRIOR TO D/C, TIP NOTED INTACT, PRESSURE DRESSING APPLIED- D/C TEACHING/EDUCATION/NEEDED FOLLOW UPS COMMUNICATED TO PT, PT VERBALIZES UNDERSTANDING- WRITTEN EDUCATION/SCRIPTS PROVIDED TO PT PRIOR TO D/C- ALL QUESTIONS AND CONCERNS ADDRESSED PRIOR TO D/C- BELONGINGS PACKED AND ACCOUNTED FOR PER PT- PT ESCORTED PER TECH VIA W/C TO FAMILY VEHICLE AT 1145- NO PROBLEMS TO NOTE AT TIME OF D/C
== END 2018-10-28 11:45 | disposition home health service (06) | DRG 916 ==
LOC: M.ERS 16:22 → M.TBA-ER 18:00 → M.2W 18:00 → M.TBA-ER 10-23 14:17 → M.2W 10-23 18:37
PROVIDERS: Internal Medicine Hematology & Oncology; Nurse Practitioner; Specialist; ADMIT Internal Medicine
PROC: 05HY33Z Insertion of Infusion Device into Upper Vein, Percutaneous Approach (ICD-10-PCS; principal; 2018-10-25)
DX: T78.40XA Allergy, unspecified, initial encounter (principal); B37.81 Candidal esophagitis; B00.2 Herpesviral gingivostomatitis and pharyngotonsillitis; B37.0 Candidal stomatitis; D70.2 Other drug-induced agranulocytosis; I10 Essential (primary) hypertension; E09.65 Drug or chemical induced diabetes mellitus with hyperglycemia; K21.9 Gastro-esophageal reflux disease without esophagitis; J44.9 Chronic obstructive pulmonary disease, unspecified; G25.81 Restless legs syndrome; M06.9 Rheumatoid arthritis, unspecified; G89.29 Other chronic pain; M54.9 Dorsalgia, unspecified; R74.0 Nonspecific elevation of levels of transaminase and lactic acid dehydrogenase [LDH]; E53.8 Deficiency of other specified B group vitamins; D70.9 Neutropenia, unspecified; R13.10 Dysphagia, unspecified; T45.1X5A Adverse effect of antineoplastic and immunosuppressive drugs, initial encounter; Z89.021 Acquired absence of right finger(s); Z90.49 Acquired absence of other specified parts of digestive tract; Z88.8 Allergy status to other drugs, medicaments and biological substances; Z88.6 Allergy status to analgesic agent; Z91.041 Radiographic dye allergy status; Z90.710 Acquired absence of both cervix and uterus; Z87.891 Personal history of nicotine dependence

== ENCOUNTER 2018-11-10 19:15 | Inpatient (IN) | payer OTHER ==
[~2018-11-10] VITALS: Ht 157.5 cm; Wt 67.6 kg
[~2018-11-10 19:15] MED LIST changes: +AMLODIPINE BESYL5 M1 PO; +CYCLOBENZAPRINE5 MG PO; +DIFLUCAN200 MG PO
[2018-11-10 19:23] VITALS: BP 114/77
[2018-11-10] MEDS ORDERED: SPIRIVA INH (19:28)
[2018-11-10] MEDS ORDERED: PROTONIX40 M1 PO (19:28)
[2018-11-10] MEDS ORDERED: PULMICORT0.25 MG/3 INH (19:29)
[2018-11-10 19:48] LABS: ABSOLUTE BASOPHILS 0.1 thou/uL (0.0-0.2); ABSOLUTE EOSINOPHILS 0.1 thou/uL (0.0-0.7); ABSOLUTE MONOCYTES 0.8 thou/uL (0.0-1.2); ABSOLUTE NEUTROPHILS 4.9 thou/uL (1.6-8.1); HEMATOCRIT 37.1 % (37.0-47.0); HEMOGLOBIN 12.8 gm/dL (12.0-15.0); LYMPHOCYTES 33.6 %; MCH 35.2 pg (26.0-34.0); MCHC 34.6 g/dL (28.0-37.0); MCV 101.6 fL (80.0-100.0); MONOCYTES 9.3 %; NUCLEATED RBCS 0 /100WBC; PLATELET COUNT* 279 thou/uL (150-400); POLYS 55.1 %; RBC 3.65 mil/uL (4.20-5.00); RDW-CV 14.8 % (10.5-14.5)
[2018-11-10 20:01] LABS: ANION GAP 14 mmol/L (7-16); BUN 17 mg/dL (7-18); CALCIUM 8.6 mg/dL (8.5-10.1); CHLORIDE 100 mmol/L (98-107); CO2 26 mmol/L (21-32); CREATININE 0.9 mg/dL (0.6-1.3); GLUCOSE 129 mg/dL (70-99); SODIUM 140 mmol/L (136-145); TROPONIN-I LEVEL <0.06 ng/mL (<0.06)
[2018-11-10 20:03] LABS: ALBUMIN 3.3 g/dL (3.4-5.0); ALKALINE PHOSPHATASE 68 U/L (46-116); LIPASE 242 U/L (73-393); NT-PRO BRAIN NAT PEPTIDE 159 pg/mL (<300); SGOT 20 U/L (15-37); SGPT 36 U/L (30-65); TOTAL BILIRUBIN 0.2 mg/dL (<0.1-1.0); TOTAL PROTEIN 6.6 g/dL (6.4-8.2)
[2018-11-10 21:22] VITALS: BP 138/63
[2018-11-10 23:55] VITALS: BP 122/77
[2018-11-11 04:00] VITALS: BP 121/69
[2018-11-11 04:46] LABS: HEMOGLOBIN 12.5 gm/dL (12.0-15.0); MCH 34.8 pg (26.0-34.0); MCHC 33.7 g/dL (28.0-37.0); MCV 103.4 fL (80.0-100.0); MPV 8.7 fl. (7.2-11.1); RBC 3.58 mil/uL (4.20-5.00); RDW-CV 15.1 % (10.5-14.5); WBC 3.2 thou/uL (4.0-11.0)
[2018-11-11 05:40] LABS: CALCIUM 8.7 mg/dL (8.5-10.1); PHOSPHORUS* 2.9 mg/dL (2.5-4.9); POTASSIUM 2.8 mmol/L (3.5-5.1)
[2018-11-11 08:00] VITALS: BP 151/73
[2018-11-11 11:30] VITALS: BP 133/67
--- NOTE | 2018-11-11 13:42 | EKG ---
[place] [address] ELECTROCARDIOGRAM REPORT Name: ANGELINA RIVERA Room: [address] ADM IN M.R.#: [id number] Admission: 11/10/18 Attend Phys: Priyank Rothman MD Discharge: Date of : 46 Report #: [id number] THIS REPORT FOR: //name// [facility] ED Test Date: 2018-11-10 Test Time: 19:42:05 Pat Name: ANGELINA RIVERA Department: Room: [facility] Gender: F Waste Water Plant Operator: Kaylie SNEED : 1950 Requested By: Ronaldo Brown Order Number: [id number] MD: Tariq Dias Measurements Intervals [place] Rate: 71 P: 14 IN: 130 QRS: -35 QRSD: 92 T: 27 QT: 394 QTc: 429 Interpretive Statements Sinus rhythm Abnormal R-wave progression, early transition Left axis deviation Baseline wander in lead(s) V2 Compared to ECG 10/23/2018 17:26:44 T-wave abnormality no longer present Electronically Signed On 11-11-2018 13:42:31 CDT by Tariq Dias [email or web address] <ELECTRONICALLY SIGNED> By: Tariq Dias MD, FACC 11/11/18 1342 41 41 Tariq Dias MD, FAC /EPI
[2018-11-11 14:57] LABS: URINE BILIRUBIN NEGATIVE (Negative); URINE BLOOD TRACE (Negative); URINE CLARITY CLEAR; URINE COLOR YELLOW; URINE GLUCOSE-RANDOM 3+ (Negative); URINE KETONES NEGATIVE (Negative); URINE LEUKOCYTES-REFLEX NEGATIVE (Negative); URINE NITRITE-REFLEX NEGATIVE (Negative); URINE PROTEIN NEGATIVE (Negative); URINE SPECIFIC GRAVITY <= 1.005 (1.005-1.030); URINE UROBILINOGEN 0.2 E.U./dl (0.2-1.0)
[2018-11-11 15:17] LABS: AMP/METHAMP Negative (Negative); BARBITURATES Negative (Negative); BENZODIAZEPINES Negative (Negative); COCAINE Negative (Negative); METHADONE Negative (Negative); OPIATES POSITIVE (Negative); PCP Negative (Negative); THC Negative (Negative)
[2018-11-11 16:18] VITALS: BP 144/79
[2018-11-11 20:10] VITALS: BP 124/69
[2018-11-12] VITALS: BP 128/72
[2018-11-12 04:00] VITALS: BP 137/73
[2018-11-12 04:47] LABS: HEMOGLOBIN 11.4 gm/dL (12.0-15.0); MCH 35.6 pg (26.0-34.0); MCHC 34.7 g/dL (28.0-37.0); MCV 102.7 fL (80.0-100.0); MPV 8.6 fl. (7.2-11.1); NUCLEATED RBCS 0 /100WBC; PLATELET COUNT* 214 thou/uL (150-400); RBC 3.21 mil/uL (4.20-5.00); RDW-CV 15.2 % (10.5-14.5); WBC 10.7 thou/uL (4.0-11.0)
[2018-11-12 05:01] LABS: POTASSIUM 3.3 mmol/L (3.5-5.1)
[2018-11-12 07:15] LABS: ABSOLUTE LYMPHOCYTES 0.5 thou/uL (0.8-5.3); ABSOLUTE MONOCYTES 0.2 thou/uL (0.0-1.2); ANISOCYTOSIS 1+; PLATELET ESTIMATE ADEQUATE; POIKILOCYTOSIS 1+; POLYCHROMASIA Occasional
[2018-11-12 12:34] VITALS: BP 122/71
[2018-11-12] MEDS ORDERED: EPIPEN 2-P0.3 MG/0.3 IM (13:07)
[2018-11-12] MEDS ORDERED: CLARITIN10 M2 PO (13:07)
[2018-11-12] MEDS ORDERED: FOLIC ACID1 MG PO (13:08)
[2018-11-12] MEDS ORDERED: SINGULAIR 10 MG10 M1 PO (13:08)
[2018-11-12] MEDS ORDERED: PEPCID20 MG PO (13:08)
[2018-11-12] MEDS ORDERED: CENTRUM SILVER1 EAC4 PO (13:09)
[2018-11-12] MEDS ORDERED: VITAMIN B-12500 MCG PO (13:11)
[2018-11-12] MEDS ORDERED: DIFLUCAN200 MG PO (13:15)
[2018-11-12] MEDS ORDERED: PREDNISONE 20 M20 MG PO (13:15)
[2018-11-12 13:55] VITALS: BP 122/71
--- NOTE | 2018-11-12 19:38 | CON ---
[address] [address] CONSULTATION Name: ANGELINA RIVERA Room: [address] IN ..#: [id number] Admission: 11/10/18 Attend Phys: Priyank Rothman MD Discharge: 11/12/18 Date of : 46 Report #: [id number] THIS REPORT FOR: //name// CC: Darline Rothman DICTATED BY: Caitlin Rosales [facility] DATE OF SERVICE: 11/11/2018 Please note at the time of this dictation, the patient was seen and physically examined by myself. REASON FOR CONSULTATION: Odynophagia. HISTORY OF PRESENT ILLNESS: This is a 68-year-old female presented to the Emergency Room with possible allergic reaction in which she was experiencing swelling in her throat and tongue and as well as having some odynophagia. The patient also was complaining of some intermittent abdominal pain, nausea without vomiting and occasional constipation due to her pain medication and able to resolve with the [place] magn[place] pill. The patient appears that she has had multiple admissions for anaphylaxis for various reasons in the past. It is noted on ER admission that her blood alcohol level was 192. She did state she had a little bit of bleeding from her hemorrhoids last week, but otherwise are well controlled. The patient's last colonoscopy was in [address] Mendoza. She did have a history of a colon polyp at that time and noted some diverticular disease. The patient does mention that she does take 2 Aleve every 2-3 days p.r.n. for discomfort. It is noted in 2010, she had an EGD and a colonoscopy done by Dr. Blair at that time that showed a small hiatal hernia. On colonoscopy, noted moderate diverticulosis, otherwise normal in 2010. ALLERGIES: INCLUDE CODEINE, IODINE, MORPHINE, BROVANA, ASPIRIN, FENTANYL, HONEY, LIDOCAINE, METHOTREXATE AND ONDANSETRON. MEDICATIONS: From home, pantoprazole, Spiriva, Pulmicort, hydrochlorothiazide, Zocor, Toprol, Requip, Neurontin. PAST SURGICAL HISTORY: Hysterectomy, breast implants and back surgery. FAMILY HISTORY: Significant for colon cancer in father and several aunts. SOCIAL HISTORY: She is a nonsmoker. She does drink alcohol several times a week as noted on her blood alcohol level of 192 when she came in. Denies [place] [address] CONSULTATION Name: ANGELINA RIVERA Room: [address]#: [id number] Admission: 11/10/18 Attend Phys: Priyank Rothman MD Discharge: 11/12/18 Date of : 46 Report #: [id number] LABORATORY DATA: On admission, hemoglobin 12.5, white count is 3.2, platelets 219. GFR is 55. No imaging was performed. IMPRESSION: 1. Odynophagia likely secondary to her anaphylaxis. 2. Thrush. 3. History of anaphylaxis. 4. Family history of colon cancer. PLAN: Discussed with the patient further workup as an outpatient will be due for colonoscopy and if she is still having issues once she is fully taken all of her medicine could look at doing an EGD. Thank you for allowing us to participate in this patient's care. Please do not hesitate to call with any questions in regard to this consult. Agree with evaluation, assessment and plan as outlined by Caitlin Rosales above. <ELECTRONICALLY SIGNED> By: Juan Jose Vidal MD 11/12/18 1938 1134 [id number] Jose Vidal MD /nt
== END 2018-11-12 15:23 | disposition home or self-care (01) | DRG 916 ==
LOC: M.ERS 19:15 → M.TBA-ER 20:00 → M.2W 20:00
PROVIDERS: Emergency Medicine; ADMIT Family Medicine
DX: T78.2XXA Anaphylactic shock, unspecified, initial encounter (principal); I50.32 Chronic diastolic (congestive) heart failure; B37.0 Candidal stomatitis; R13.10 Dysphagia, unspecified; K21.9 Gastro-esophageal reflux disease without esophagitis; G25.81 Restless legs syndrome; M06.9 Rheumatoid arthritis, unspecified; E87.6 Hypokalemia; E83.42 Hypomagnesemia; M54.9 Dorsalgia, unspecified; G89.29 Other chronic pain; F10.10 Alcohol abuse, uncomplicated; E53.8 Deficiency of other specified B group vitamins; J44.9 Chronic obstructive pulmonary disease, unspecified; Z89.021 Acquired absence of right finger(s); Z90.79 Acquired absence of other genital organ(s); Z90.722 Acquired absence of ovaries, bilateral; Z90.710 Acquired absence of both cervix and uterus; Z87.891 Personal history of nicotine dependence; Z90.49 Acquired absence of other specified parts of digestive tract; Z79.899 Other long term (current) drug therapy; Z88.6 Allergy status to analgesic agent; Z91.041 Radiographic dye allergy status; Z88.5 Allergy status to narcotic agent; Z88.8 Allergy status to other drugs, medicaments and biological substances; Z91.018 Allergy to other foods; Z80.0 Family history of malignant neoplasm of digestive organs; I11.0 Hypertensive heart disease with heart failure

== ENCOUNTER 2019-03-04 06:07 | Inpatient (IN) | payer OTHER ==
[2019-02-17 09:18] LABS: ABSOLUTE BASOPHILS 0.1 thou/uL (0.0-0.2); ABSOLUTE EOSINOPHILS 0.1 thou/uL (0.0-0.7); ABSOLUTE LYMPHOCYTES 1.6 thou/uL (0.8-5.3); ABSOLUTE MONOCYTES 0.4 thou/uL (0.0-1.2); ABSOLUTE NEUTROPHILS 1.8 thou/uL (1.6-8.1); BASOPHILS 1.3 %; EOSINOPHILS 2.4 %; HEMATOCRIT 40.7 % (37.0-47.0); LYMPHOCYTES 40.3 %; MCH 33.8 pg (26.0-34.0); MCHC 34.4 g/dL (28.0-37.0); MCV 98.3 fL (80.0-100.0); MPV 8.5 fl. (7.2-11.1); NUCLEATED RBCS 0 /100WBC; PLATELET COUNT* 267 thou/uL (150-400); RBC 4.15 mil/uL (4.20-5.00); RDW-CV 12.9 % (10.5-14.5); WBC 3.9 thou/uL (4.0-11.0)
[2019-02-17 09:36] LABS: APTT 26.2 Seconds (25.0-31.3)
[2019-02-17 09:45] LABS: ALBUMIN 3.6 g/dL (3.4-5.0); CALCIUM 9.3 mg/dL (8.5-10.1); CREATININE 0.9 mg/dL (0.6-1.3)
[2019-02-17 10:15] LABS: TOTAL BILIRUBIN 0.3 mg/dL (<0.1-1.0); TOTAL PROTEIN 6.9 g/dL (6.4-8.2)
[2019-02-17 10:40] LABS: ESR (SEDRATE) 14 mm/hr (0-30)
[~2019-03-04] VITALS: Ht 157.5 cm; Wt 73.0 kg
[~2019-03-04 06:07] MED LIST changes: +CENTRUM SILVER1 EAC4 PO; +CLARITIN10 M2 PO; +EPIPEN 2-P0.3 MG/0.3 IM; +FOLIC ACID1 MG PO; +GABAPENTIN 100100 MG PO; +HYDROCODON-ACE1 EAC8 PO; +PULMICORT0.25 MG/3 INH; +SINGULAIR 10 MG10 M1 PO; +VITAMIN B-12500 MCG PO
[2019-03-04 06:55] VITALS: BP 141/80
[2019-03-04 10:22] LABS: PROTIME 10.6 Seconds (9.20-11.50)
[2019-03-04 12:21] VITALS: BP 104/72
--- NOTE | 2019-03-04 12:23 | NUR ---
REVIEWED NURSING STUDENTS CHARTING AND AGREE WITH WHAT IS CHARTED.
--- NOTE | 2019-03-04 12:43 | NUR ---
PT ARRIVED FROM PACU ABOUT 1130 FROM A RIGHT TOTAL HIP. DRESSING C/D/I. TEDS, FOOT SCDS, ICE, CONTINUOUS PULSE OX IN PLACE. ON 2LOX. IV PATENT. HAS NOT GOT UP SINCE ARRIVAL. FALL PRECAUTIONS IN PLACE. CALL LIGHT WITHIN REACH. WILL CONTINUE TO MONITOR.
[2019-03-04 16:00] VITALS: BP 107/62
--- NOTE | 2019-03-04 16:28 | NUR ---
PT A&Ox4. VITALS STABLE. PAIN CONTROLLED WITH NORCO AND DILAUDID. NAUSEA CONTROLLED WITH PROMETHAZINE. DRESSING C/D/I. ICE, TEDS, SCDS, AND CONTINUOUS PULSE OX ON. HAS NOT GOT UP DURING SHIFT. FALL PRECAUTIONS IN PLACE. CALL LIGHT WITHIN REACH. WILL CONTINUE TO MONITOR.
[2019-03-04 20:10] VITALS: BP 105/58
[2019-03-05] VITALS: BP 101/58
[2019-03-05 03:27] VITALS: BP 137/72
[2019-03-05 04:02] LABS: HEMATOCRIT 32.7 % (37.0-47.0); HEMOGLOBIN 11.4 gm/dL (12.0-15.0)
[2019-03-05 04:15] LABS: PROTIME 10.3 Seconds (9.20-11.50)
[2019-03-05 07:24] LABS: TROPONIN-I LEVEL <0.06 ng/mL (<0.06)
[2019-03-05 07:40] VITALS: BP 150/75
--- NOTE | 2019-03-05 07:49 | NUR ---
PATIENT HAS SLEPT WELL MOST OF THE NIGHT. VSS ON 2L 02 VIA NASAL CANNULA. PATIENT HAS HAD C/O NAUSEA. MEDICATION GIVEN VIA IV TO HELP WITH NAUSEA. DRESSING TO RIGHT HIP IS C/D/I, SCD'S [place] AND ICE PACK IN PLACE. IV IN LEFT FOREARM-SL. PATIENT INSTRUCTED TO USE CALL LIGHT WHEN NEEDING ASSISTANCE. HOURLY ROUNDS MADE. WILL CONTINUE WITH PLAN OF CARE AND NURSING TO MONITOR.
[2019-03-05 08:29] LABS: CALCIUM 8.1 mg/dL (8.5-10.1); CREATININE 0.7 mg/dL (0.6-1.3); POTASSIUM 3.5 mmol/L (3.5-5.1)
[2019-03-05 13:50] LABS: TROPONIN-I LEVEL <0.06 ng/mL (<0.06)
--- NOTE | 2019-03-05 18:32 | NUR ---
PATIENT RECEIVED FROM [facility]. SHE DENIES CHEST PAIN AND LEFT ARM PAIN. NSR ON CARAMEL CUTTER HAND. PATINET IS NOT COMFOTABLE WIT AMBULATION AT THIS POINT. VITAL SIGNS STABLE AND PATIENTS PAIN IS WELL MANAGED WITH PO MEDICATIONS. HOURLY ROUNDING COMPLETD FOR PATIENT SAFETY.
[2019-03-05 20:00] VITALS: BP 128/68
[2019-03-05] MEDS ORDERED: BENADRYL25 MG PO (21:42)
[2019-03-06 00:13] VITALS: BP 127/68
[2019-03-06 04:04] VITALS: BP 136/75
[2019-03-06 04:16] LABS: HEMATOCRIT 31.2 % (37.0-47.0); HEMOGLOBIN 10.7 gm/dL (12.0-15.0); MCH 33.8 pg (26.0-34.0); MCHC 34.2 g/dL (28.0-37.0); MCV 98.7 fL (80.0-100.0); MPV 8.8 fl. (7.2-11.1); RBC 3.16 mil/uL (4.20-5.00); RDW-CV 13.5 % (10.5-14.5); WBC 6.9 thou/uL (4.0-11.0)
[2019-03-06 04:27] LABS: PROTIME 10.7 Seconds (9.20-11.50)
[2019-03-06 08:00] VITALS: BP 138/75
--- NOTE | 2019-03-06 11:13 | CON ---
[facility] [address] [place] [address] CONSULTATION Name: MIGUELANGELINALULU STODDARD Room: [address] IN M.R.#: [id number] Admission: 03/04/19 Attend Phys: Sharri Junior Discharge: Date of : 46 Report #: [id number] THIS REPORT FOR: //name// CC: Alon Dee DATE OF SERVICE: 03/05/2019 CARDIOLOGY CONSULTATION HISTORY OF PRESENT ILLNESS: The patient is a 68-year-old single white female whom I was asked to see in the hospital today after she complained of chest pain. The patient had a previous heart catheterization in 2012 that showed only 50% narrowing in the left anterior descending. Nuclear stress test in 2013 actually showed no significant ischemia. I actually just saw her in the clinic in January. She is not very active because of arthritis, but denied any recent chest pain, shortness of breath, or palpitations. Recently, she has had increasing hip pain. She was electively admitted yesterday and underwent hip surgery. Today lying in bed, she felt some discomfort in her chest going into her back. She denied any radiation to her arms. She denied any shortness of breath, nausea, or diaphoresis. Cardiology consultation is requested. The pain is gradually resolving. She denied any belch with the episode. She has had no recent bleeding. She denied any fever, cough, or trauma to her chest. PAST MEDICAL HISTORY: She has a history of hypertension, hyperlipidemia, and restless legs syndrome. PAST SURGICAL HISTORY: She has had breast implants that were subsequently removed. She had a previous hysterectomy and cholecystectomy. MEDICATIONS: Include aspirin, an inhaler, hydrochlorothiazide, metoprolol, Protonix, Requip, simvastatin, and Spiriva. ALLERGIES: SHE HAS INTOLERANCE TO HIGH-DOSE ASPIRIN AND CODEINE. FAMILY HISTORY: Mother with congestive heart failure. SOCIAL HISTORY: She is single, lives in [place], quit smoking in 2004, and rarely drinks alcohol. REVIEW OF SYSTEMS: She has had no history of stroke, peptic ulcer disease, liver disease, kidney disease, cancer, psychiatric illness, [place] [address] CONSULTATION Name: ANGELINA RIVERA ARLYN Room: [address]#: [id number] Admission: 03/04/19 Attend Phys: Sharri Junior Discharge: Date of : 46 Report #: [id number] PHYSICAL EXAMINATION: GENERAL: Revealed an elderly female, lying in bed. She appeared in no distress. VITAL SIGNS: She had a blood pressure of 120/60, pulse is 80, and she is afebrile. HEENT: She was anicteric, conjunctivae pink. Mucous membranes are moist. NECK: Veins do not appear distended. No carotid bruits. Neck is supple. CHEST: Clear to auscultation. CARDIOVASCULAR: Regular rate and rhythm. ABDOMEN: Soft. EXTREMITIES: Had no edema. Dorsalis pedis pulse 2+ bilaterally. SKIN: Warm and dry. NEUROLOGIC: Nonfocal. DIAGNOSTIC DATA: Her ECG done this morning during an episode of chest pain showed a sinus rhythm, borderline T-wave abnormality, but compared to ECG of 11/10/2018, there is no significant change. Her chest x-ray was done in October showed hyperinflated lung flores, otherwise unremarkable. LABORATORY DATA: Sodium 142, creatinine 0.7, troponin this morning 0.06, white blood cell count 3.9, and hemoglobin 11.4. IMPRESSION AND RECOMMENDATIONS: 1. Chest pain, atypical for angina, suspect noncardiac. Recommend no further cardiac evaluation. 2. Hypertension. The patient has been on a beta-gabriele and diuretic. 3. Hyperlipidemia. The patient is on a statin drug. 4. Previous tobacco abuse. 5. Chronic obstructive pulmonary disease. 6. Status post hip surgery. <ELECTRONICALLY SIGNED> By: Cesar Deshpande MD, [facility] 03/06/19 1113 1039 [id number] Deshpande MD, FAC /nt
[2019-03-06 11:30] VITALS: BP 105/64
[2019-03-06 16:00] VITALS: BP 155/77
--- NOTE | 2019-03-06 18:32 | NUR ---
assumed pt care at 0730, full assesment done as charted. pt a/o x4, drowsy, c/o pain in right hip and left chest. pt given meds per OCT. pts vss, sr on the monitor. pt to have CTA on thursday, discussed plan of care with pt, she verbalized understanding. pt up with 1 assist/walker, not picking up right foot very far. pts dressing to left hip C/D/I, bruising to incision area noted. pt up to chiar this evening. calls appropriatly for needs. will continue with plan of care.
[2019-03-06 20:00] VITALS: BP 127/91
[2019-03-07] VITALS: BP 146/68
[2019-03-07 04:00] VITALS: BP 130/63
--- NOTE | 2019-03-07 04:30 | NUR ---
ASSUMED PT CARE AT APPROX 1930. PT IS AWAKE AND ORIENTED X4. VSS ON ROOM AIR. COPY EDITOR IN PLACE TRACING SR. PT C/O RT HIP PAIN AND LEFT CHEST PAIN RELIEVED BY PAIN MEDICINE GIVEN PER OCT. PT WAS ABLE TO SLEEP MOST OF THE NIGHT. PT REPOSITIONED EVERY 2HRS. RT HIP INCISION SITE DRESSING-DRY AND INTACT. COLD COMPRESS MAINTAINED ON RT HIP. HOURLY ROUNDING DONE FOR SAFETY. FALL PRECAUTIONS IN PLACE. CALL LIGHT WITHIN REACH.
[2019-03-07 05:01] LABS: HEMATOCRIT 32.5 % (37.0-47.0); HEMOGLOBIN 10.9 gm/dL (12.0-15.0); MCH 33.5 pg (26.0-34.0); MCHC 33.5 g/dL (28.0-37.0); MCV 99.9 fL (80.0-100.0); MPV 8.9 fl. (7.2-11.1); NUCLEATED RBCS 0 /100WBC; PLATELET COUNT* 196 thou/uL (150-400); RBC 3.26 mil/uL (4.20-5.00); RDW-CV 13.7 % (10.5-14.5); WBC 7.9 thou/uL (4.0-11.0)
[2019-03-07 05:14] LABS: CALCIUM 8.5 mg/dL (8.5-10.1); CREATININE 0.9 mg/dL (0.6-1.3)
[2019-03-07 05:35] LABS: POTASSIUM 2.7 mmol/L (3.5-5.1)
[2019-03-07 05:59] LABS: ABSOLUTE LYMPHOCYTES 0.4 thou/uL (0.8-5.3); ABSOLUTE MONOCYTES 0.2 thou/uL (0.0-1.2); ABSOLUTE NEUTROPHILS 7.3 thou/uL (1.6-8.1); ANISOCYTOSIS 1+; PLATELET ESTIMATE ADEQUATE
[2019-03-07 06:00] LABS: POIKILOCYTOSIS 1+
[2019-03-07 07:30] VITALS: BP 125/95; BP 147/78
[2019-03-07 12:00] VITALS: BP 122/60
--- NOTE | 2019-03-07 14:17 | EKG ---
[place] [address] ELECTROCARDIOGRAM REPORT Name: ANGELINA RIVERA Room: [address] ADM IN M.R.#: [id number] Admission: 03/04/19 Attend Phys: Sharri Junior Discharge: Date of : 46 Report #: [id number] THIS REPORT FOR: //name// [facility] Test Date: 2019-03-05 Test Time: 06:20:55 Pat Name: ANGELINA RIVERA Department: Room: [address] Gender: F Pharmacy General Manager: UNKNOWN : 1950 Requested By: Hector Dee Order Number: [id number] MD: Cesar Deshpande Measurements Intervals [place] Rate: 74 P: 43 FL: 147 QRS: -15 QRSD: 95 T: 44 QT: 396 QTc: 440 Interpretive Statements Sinus rhythm Borderline left axis deviation Nonspecific T abnormalities, anterior leads Compared to ECG 11/10/2018 19:42:05 T-wave abnormality now present Electronically Signed On 03-07-2019 14:17:32 CDT by Cesar Deshpande [email or web address] <ELECTRONICALLY SIGNED> By: Cesar Deshpande MD, [facility] 03/07/19 1417 9 Cesar Deshpande MD, [facility] /EPI
--- NOTE | 2019-03-07 14:25 | NUR ---
Pt is A&O. Resides at home alone. Independent. Pt has a cane and walker that she uses PRN. Pt has a cpap, but states that she does not use it. Pt also has grab bars and a nebulizer. Hx of [facility]. No hx of SNF. Goal is home at dc, Pt wants [facility]. CM informed [facility] of referral, awaiting decision to accept. Per Pt, anticipate dc to home tomorrow.
--- NOTE | 2019-03-07 15:55 | NUR ---
ASSESSMENT COMPLETE. PT ALERT AND ORIENTED X4. K+ REPLACED DURING THE DAY. PT HAD CT THIS AFTERNOON, RESULTS PENDING. IV IN LEFT FOREARM INFILTRATED IN CT, INFUSION PLACED NEW IV IN RIGHT FA. PT GIVEN SOLUMEDROL X3 YESTERDAY FOR ALLERGY TO IODINE FOR CONTRAST IN CT TODAY. PATIENT RETURNED TO ROOM AND REPORTED "PUFFY FEELING LIPS AND EYES". EYES DID HAVE REDNESS NOTED. PHYSICIAN NOTIFIED, PO BENADRYL AND SOLUMEDROL X1 GIVEN. PT DENIES ANY SOA OR DIFFICULTY BREATHING. RIGHT HIP DRESSING C/D/I. PT UP ONE ASSIST WITH WALKER. PT GIVEN PRN PAIN MEDICATION NEEDED. NSR ON TELE MONITOR, VSS. ACCU CHECK DUE TO STEROIDS INCREASING BLOOD SUGAR, SLIDING SCALE ORDERED. PT TOLERATING MEALS, DENIES N/V. SEE ASSESSMENT AND VITALS FOR OTHER DETAILS, CALL LIGHT WITHIN REACH. WILL CONTINUE PLAN OF CARE
[2019-03-07 16:00] VITALS: BP 150/85
[2019-03-07 20:00] VITALS: BP 150/72
[2019-03-08] VITALS: BP 127/64
[2019-03-08 02:05] LABS: GLYCOHEMOGLOBIN (HGB A1C) 5.7 % (4.8-5.6)
[2019-03-08 04:00] VITALS: BP 139/72
--- NOTE | 2019-03-08 04:42 | NUR ---
ASSUMED PT CARE APPROX 1930. PT IS AWAKE AND ORIENTED X4. VSS ON ROOM AIR. RN CARDIOVASCULAR IN PLACE TRACING SR. ASSESSMENT DONE AND CHARTED. PT CLOSELY MONITORED FOR DELAYED ALLERGIC REACTION TO CONTRAST DYE. NO WHEEZING, NO PRURITUS NOTED. PT DENIES TIGHTNESS/FULLNESS IN THE THROAT, LIPS, AND MOUTH. PT C/O RT HIP PAIN PARTIALLY RELIEVED BY PAIN MEDS GIVN PER OCT. CALL LIGHT WITHIN REACH. HOURLY ROUNDING DONE FOR PT SAFETY.
[2019-03-08 07:30] VITALS: BP 148/74
[2019-03-08 10:23] VITALS: BP 148/74
--- NOTE | 2019-03-08 10:25 | NUR ---
D/C FIRE EXTINGUISHER SPRINKLER INSPECTOR INFORMED BY THE PHYSICIAN THAT THE PATIENT WOULD D/C TODAY HOME WITH . D/C FIRE EXTINGUISHER SPRINKLER INSPECTOR SPOKE TO THE PATIENT AND SHE IS IN AGREEMENT WITH THE PLAN. D/C FIRE EXTINGUISHER SPRINKLER INSPECTOR FAXED PATIENT'S D/C ORDERS TO [facility]. [facility] TO CONTACT THE PATIENT TO [facility] A TIME TO VISIT. CM WILL REMAIN AVAILABLE TO ASSIST AND FOLLOW NEEDED.
[2019-03-08] MEDS ORDERED: NORCO 5-325 TA1 EAC1 PO (15:48)
[2019-03-08] MEDS ORDERED: ELIQUIS2.5 MG PO (15:48)
[2019-03-08 16:01] VITALS: BP 104/58
--- NOTE | 2019-03-08 16:05 | NUR ---
DC orders written, faxed to . Informed by nurse that Pt is not wanting to dc today. Spoke with , he informed that Pt is medically stable for dc and requested that surgery be contacted to confirm stability to dc and to discuss SNF. BABS spoke with Pt, Pt informed that she is experiencing increased pain and that she would prefer to dc to home with her cousin arrives tomorrow to assist her at home. Updated nurse, nurse paged surgery, awaiting call back.
[2019-03-08 20:00] VITALS: BP 136/76
[2019-03-09 00:09] VITALS: BP 103/76
--- NOTE | 2019-03-09 03:43 | NUR ---
ASSUMED PT CARE AT APPROX 1930. PT IS AWAKE AND ORIENTED X4. VSS ON RA. PT C/O RT HIP PAIN PARTIALLY RELEIVED BY PAIN MEDS GIVEN PER OCT. PT EDUCATED ON OTHER NON PHARMACOLOGICAL PAIN RELIEF MEASURES. PT WAS ABLE TO SLEEP MOST OF THE NIGHT. CALL LIGHT WITHIN REACH. HOURLY ROUNDING DONE FOR PT SAFETY.
[2019-03-09 07:40] VITALS: BP 145/76
[2019-03-09 11:45] VITALS: BP 148/74
--- NOTE | 2019-03-09 11:45 | NUR ---
PATIENT DISCHARGED TO HOME WITH HOME HEALTH. DISCHARGE PAPERS REVIEWED AND SIGNED. PRESCRIPTIONS AND INFORMATION SHEETS GIVEN. IV REMOVED. PATIENT ASSISTED WITH PACKING BELONGINGS. PATIENT TAKEN BY WHEELCHAIR TO EXIT. LEFT WITH [facility]ANDSON.
--- NOTE | 2019-03-11 08:53 | OP ---
[address] [address] OPERATIVE REPORT Name: MIGUELANGELINALULU STODDARD Room: [address] IN ..#: [id number] Admission: 03/04/19 Attend Phys: Sharri Junior Discharge: 03/09/19 Date of : 46 Report #: [id number] THIS REPORT FOR: //name// CC: Alon Dee DATE OF SERVICE: 03/04/2019 PREOPERATIVE DIAGNOSIS: Primary osteoarthritis, right hip. POSTOPERATIVE DIAGNOSIS: Primary osteoarthritis, right hip. PROCEDURE: Right total hip arthroplasty with direct anterior approach. CHIEF MEDICAL TECHNOLOGIST: Alon Perez DO ASSOCIATE PROFESSOR OF BIOSTATISTICS: Michele Villa DO SECOND CHIEF MEDICAL TECHNOLOGIST: Guilherme Gibson DO ANESTHESIA: General with local periarticular block. FLUIDS: Lactated Ringer's. ANTIBIOTICS: 2 grams Ancef IV preoperatively. DRAINS: None. BLOOD LOSS: 350 mL. SPECIMENS: None. COMPLICATIONS: None. ORTHOPEDIC IMPLANTS: Biomet G7 48 mm acetabular shell. Two 6.5 mm bone screws; one 30 mm in length, one 25 mm in length for additional acetabular fixation. A 32 mm inner diameter neutral ArCom polyethylene liner, a 32 mm outer diameter. Options should have ceramic head with a -6 mm neck length taper adapter and a size 8 high-offset Taperloc complete stem. Other 1 gram tranexamic acid IV preoperatively. HISTORY: The patient is a 68-year-old female with a history of right hip pain. She has a mild dysplasia. Pain has become debilitating causing her to walk with an antalgic gait. She has failed nonoperative treatment. She presents today [facility] [address] [facility] [address] OPERATIVE REPORT Name: MIGUELANGELINALULU STODDARD Room: [address] IN [facility].#: [id number] Admission: 03/04/19 Attend Phys: Sharri Junior Discharge: 03/09/19 Date of : 46 Report #: [id number] for right total hip arthroplasty with direct anterior approach. Risks, benefits, complications, indications and alternatives were discussed. She has voiced understanding, signed consent and elected to proceed. Risks include, but not limited to, fracture, infection, neurovascular injury, continued pain, loss of motion, need for subsequent revision surgery, leg length inequality, instability, dislocation of the right hip joint, DVT, PE, OH, stroke, and even . DESCRIPTION OF PROCEDURE: The patient was taken to the operative suite, placed in supine position, given benefit of general anesthetic, transferred to a Hadley table, placed against perineal post. Both feet were placed in traction boots. All bony prominences were well padded. Right hip was sterilely prepped and draped in usual fashion. Proper operative site was confirmed with standard timeout technique. A direct anterior approach was taken to the right hip. Lateral circumflex vessels were identified, cauterized and incised. Anterior capsule was exposed. It was treated with Aquamantys for hemostasis. Then, an anterior capsulectomy was performed. Once the femoral neck was exposed, femoral neck cut was made with an oscillating saw and utilizing a napkin ring technique, the head and neck were removed. Retractors were repositioned for acetabular exposure. Labral debridement was performed with Bovie knife and then reaming was initiated in a sequential fashion to a 47 reamer. C-arm fluoroscopic images confirmed appropriate depth and circumference of reaming. Thorough irrigation showed circumferential punctate bleeding. I then implanted the above-mentioned acetabular shell in a press-fit fashion under C-arm fluoroscopic guidance. Two 6.5 mm bone screws were placed for additional acetabular fixation and the above-mentioned polyethylene liner was implanted. Attention was turned to the proximal femur where appropriate capsular releases were performed along with leg positioning and the external elevating hook on the Hadley table. I was able to achieve excellent proximal femoral exposure. Intramedullary canal was accessed with a rat tail rasp and then broaching was initiated upwards in a sequential fashion to a size 8 broach, which was left in place for trialing. Trialing of high-offset -6 mm neck length construct provided excellent intraoperative stability. C-arm fluoroscopic images confirmed appropriate implant placement and sizing as well as leg length and offset. The hip was dislocated, trials removed. Thorough irrigation was performed. Final stem was implanted in a press-fit fashion. Final head was impacted on the Frederick taper. The hip was reduced. Intraoperative stability checks were excellent. Final C-arm fluoroscopic images confirmed appropriate implant placement and sizing as well as leg length and offset. Thorough irrigation was performed. Hemostasis shown to be appropriate. Tensor fascia was closed with a #2 Quill suture in a running locked fashion. Subcuticular closure was performed with a 2-0 Vicryl in simple inverted interrupted fashion. Skin was closed with a running 3-0 Stratafix subcuticular suture with Dermabond on the skin. [place] [address] OPERATIVE REPORT Name: ANGELINA RIVERA Room: [address] IN .R.#: [id number] Admission: 03/04/19 Attend Phys: Sharri Junior Discharge: 03/09/19 Date of : 46 Report #: [id number] The patient tolerated the procedure well. Sponge and needle counts were correct x 2. The patient was taken to recovery room in stable condition. <ELECTRONICALLY SIGNED> By: Gio John DO 03/11/19 0853 0917 1021Achery Perez DO /parisa
== END 2019-03-09 11:45 | disposition home health service (06) | DRG 470 ==
LOC: M.2W 06:07 → M.ORTHSURG 06:07 → M.TBA 06:07 → M.PRE 06:49 → M.ORTHSURG 11:35 → M.PRE 13:54 → M.SUR 14:15 → EDSTATUS 14:30 → M.PRE 14:31 → M.ORTHSURG 03-05 09:36 → M.2W 03-05 13:37
PROVIDERS: Internal Medicine; Orthopaedic Surgery; ADMIT Internal Medicine
PROC: 0SR904Z Replacement of Right Hip Joint with Ceramic on Polyethylene Synthetic Substitute, Open Approach (ICD-10-PCS; principal; 2019-03-04)
DX: M16.11 Unilateral primary osteoarthritis, right hip (principal); I10 Essential (primary) hypertension; E78.5 Hyperlipidemia, unspecified; G25.81 Restless legs syndrome; R07.89 Other chest pain; J44.9 Chronic obstructive pulmonary disease, unspecified; Z90.49 Acquired absence of other specified parts of digestive tract; Z90.710 Acquired absence of both cervix and uterus; Z79.82 Long term (current) use of aspirin; Z79.899 Other long term (current) drug therapy; Z88.6 Allergy status to analgesic agent; Z82.49 Family history of ischemic heart disease and other diseases of the circulatory system; Z87.891 Personal history of nicotine dependence; Z91.041 Radiographic dye allergy status; Z91.018 Allergy to other foods; Z80.0 Family history of malignant neoplasm of digestive organs

== ENCOUNTER → 2019-03-30 | Outpatient (CLI) | payer OTHER ==
[~2019-03-30] MED LIST changes: +BENADRYL25 MG PO; +ELIQUIS2.5 MG PO; +NORCO 5-325 TA1 EAC1 PO
[2019-03-30 14:20] LABS: HEMOGLOBIN 11.5 gm/dL (12.0-15.0); MCH 33.2 pg (26.0-34.0); MCV 97.6 fL (80.0-100.0); MPV 8.1 fl. (7.2-11.1); RBC 3.48 mil/uL (4.20-5.00); RDW-CV 14.3 % (10.5-14.5); WBC 6.6 thou/uL (4.0-11.0)
== END ==
LOC: M.LAB 14:03
PROVIDERS: Orthopaedic Surgery
DX: R50.9 Fever, unspecified (principal)

== ENCOUNTER → 2019-04-19 | Outpatient (CLI) | payer OTHER | LOC: M.WC 09:00 | DX: T81.89XA Other complications of procedures, not elsewhere classified, initial encounter (principal); S71.101A Unspecified open wound, right thigh, initial encounter; I10 Essential (primary) hypertension; M19.90 Unspecified osteoarthritis, unspecified site; J44.9 Chronic obstructive pulmonary disease, unspecified; Z87.891 Personal history of nicotine dependence; X58.XXXA Exposure to other specified factors, initial encounter; Y93.89 Activity, other specified; Y99.8 Other external cause status; Y92.89 Other specified places as the place of occurrence of the external cause; Y83.8 Other surgical procedures as the cause of abnormal reaction of the patient, or of later complication, without mention of misadventure at the time of the procedure ==

== ENCOUNTER → 2019-04-26 | Outpatient (CLI) | payer OTHER | LOC: M.WC 04:50 | DX: T81.89XD Other complications of procedures, not elsewhere classified, subsequent encounter (principal); I10 Essential (primary) hypertension; M19.90 Unspecified osteoarthritis, unspecified site; J44.9 Chronic obstructive pulmonary disease, unspecified; Z87.891 Personal history of nicotine dependence; Y83.8 Other surgical procedures as the cause of abnormal reaction of the patient, or of later complication, without mention of misadventure at the time of the procedure ==

== ENCOUNTER → 2019-05-06 | Outpatient (CLI) | payer OTHER | LOC: M.WC 05-05 10:00 | DX: T81.89XD Other complications of procedures, not elsewhere classified, subsequent encounter (principal); I10 Essential (primary) hypertension; J44.9 Chronic obstructive pulmonary disease, unspecified; M19.90 Unspecified osteoarthritis, unspecified site; Z87.891 Personal history of nicotine dependence; Z96.641 Presence of right artificial hip joint; Y83.8 Other surgical procedures as the cause of abnormal reaction of the patient, or of later complication, without mention of misadventure at the time of the procedure ==

== ENCOUNTER 2019-09-09 22:37 | Inpatient (IN) | payer OTHER ==
[~2019-09-09] VITALS: Ht 160 cm; Wt 77.6 kg
--- NOTE | ~2019-09-09 | PROC ---
[address] [address] PROCEDURE REPORT Name: ANGELINA RIVERA Room: [address] ADM IN M.R.#: [id number] Admission: 09/10/19 Attend Phys: Ochoa paniagua [place] Discharge: Date of : 46 Report #: [id number] THIS REPORT FOR: //name// For GI report, please see the Provation report in Perceptive 7 content. By: [id number] Records Staff MORELIA /KLARISSA
--- NOTE | ~2019-09-09 | PROC ---
[address] [address] PROCEDURE REPORT Name: ANGELINA RIVERA Room: [address] ADM IN M.R.#: [id number] Admission: 09/10/19 Attend Phys: Ochoa self los [place] Discharge: Date of : 46 Report #: [id number] THIS REPORT FOR: //name// For GI report, please see the Provation report in Perceptive 7 content. By: [id number] Records Staff MORELIA /KLARISSA
[2019-09-09 22:49] VITALS: BP 87/43
[2019-09-09 23:30] LABS: CALCIUM 8.7 mg/dL (8.5-10.1); CREATININE 0.8 mg/dL (0.6-1.3); POTASSIUM 3.5 mmol/L (3.5-5.1)
[2019-09-09 23:33] LABS: ABSOLUTE BASOPHILS 0.1 thou/uL (0.0-0.2); ABSOLUTE EOSINOPHILS 0.1 thou/uL (0.0-0.7); ABSOLUTE LYMPHOCYTES 3.1 thou/uL (0.8-5.3); ABSOLUTE MONOCYTES 0.6 thou/uL (0.0-1.2); ABSOLUTE NEUTROPHILS 2.8 thou/uL (1.6-8.1); BASOPHILS 0.8 %; EOSINOPHILS 1.7 %; HEMATOCRIT 40.4 % (37.0-47.0); HEMOGLOBIN 14.1 gm/dL (12.0-15.0); LYMPHOCYTES 47.3 %; MCH 33.7 pg (26.0-34.0); MCV 96.1 fL (80.0-100.0); MONOCYTES 8.3 %; MPV 8.3 fl. (7.2-11.1); NUCLEATED RBCS 0 /100WBC; PLATELET COUNT* 211 thou/uL (150-400); POLYS 41.9 %; RDW-CV 15.4 % (10.5-14.5); WBC 6.7 thou/uL (4.0-11.0)
[2019-09-10 00:47] LABS: ANISOCYTOSIS Occasional; CLUMPED PLTS RARE
[2019-09-10 01:39] LABS: URINE BILIRUBIN NEGATIVE (Negative); URINE BLOOD TRACE (Negative); URINE CLARITY CLEAR; URINE COLOR STRAW; URINE GLUCOSE-RANDOM NEGATIVE (Negative); URINE KETONES NEGATIVE (Negative); URINE LEUKOCYTES-REFLEX TRACE (Negative); URINE NITRITE-REFLEX NEGATIVE (Negative); URINE PROTEIN NEGATIVE (Negative); URINE SPECIFIC GRAVITY <= 1.005 (1.005-1.030); URINE UROBILINOGEN 0.2 E.U./dl (0.2-1.0)
[2019-09-10 01:47] LABS: CASTS None Seen /LPF (None Seen); MUCUS 0-3 Light strn/LPF (None Seen); SQUAMOUS 0-3 Few /LPF (0-3); WBC CLUMPS Few (None Seen)
[2019-09-10 01:48] LABS: CRYSTALS None Seen /LPF (None Seen)
[2019-09-10 04:05] VITALS: BP 130/70
[2019-09-10 04:26] VITALS: BP 176/82
--- NOTE | 2019-09-10 05:38 | NUR ---
RUNNING FLUIDS AT 50 MLS REPORTS BURNING WHEN AT 100 MLS.
[2019-09-10 08:00] VITALS: BP 107/61
[2019-09-10 08:56] LABS: ABSOLUTE EOSINOPHILS 0.1 thou/uL (0.0-0.7); ABSOLUTE LYMPHOCYTES 1.9 thou/uL (0.8-5.3); ABSOLUTE MONOCYTES 0.5 thou/uL (0.0-1.2); ABSOLUTE NEUTROPHILS 2.9 thou/uL (1.6-8.1); BASOPHILS 0.7 %; EOSINOPHILS 1.4 %; HEMATOCRIT 34.3 % (37.0-47.0); LYMPHOCYTES 34.7 %; MCH 33.1 pg (26.0-34.0); MCHC 34.6 g/dL (28.0-37.0); MCV 95.6 fL (80.0-100.0); MONOCYTES 8.9 %; MPV 7.9 fl. (7.2-11.1); NUCLEATED RBCS 0 /100WBC; PLATELET COUNT* 230 thou/uL (150-400); POLYS 54.3 %; RBC 3.59 mil/uL (4.20-5.00); RDW-CV 15.4 % (10.5-14.5); WBC 5.4 thou/uL (4.0-11.0)
[2019-09-10 09:04] LABS: HEMOGLOBIN 11.9 gm/dL (12.0-15.0)
[2019-09-10 09:10] LABS: PROTIME 10.6 Seconds (9.20-11.50)
[2019-09-10] MEDS ORDERED: MACROBID 100 M100 MG PO (09:55)
[2019-09-10 10:33] LABS: ALBUMIN 2.9 g/dL (3.4-5.0); ALKALINE PHOSPHATASE 60 U/L (46-116); ANION GAP 14 mmol/L (7-16); BUN 8 mg/dL (7-18); CALCIUM 7.8 mg/dL (8.5-10.1); CHLORIDE 98 mmol/L (98-107); CO2 26 mmol/L (21-32); CREATININE 0.9 mg/dL (0.6-1.3); GLUCOSE 169 mg/dL (70-99); PHOSPHORUS* 3.4 mg/dL (2.5-4.9); SGOT 41 U/L (15-37); SGPT 39 U/L (30-65); SODIUM 138 mmol/L (136-145); TOTAL BILIRUBIN 0.4 mg/dL (<0.1-1.0); TOTAL PROTEIN 5.7 g/dL (6.4-8.2)
--- NOTE | 2019-09-10 10:35 | NUR ---
PATIENT MADE TELE STATUS AND TRANSFERRED TO TELEMETRY. ASSESSMENT CHARTED. VITAL SIGNS STABLE ON ROOM AIR. REPORT GIVEN TO ANGELO MARTEL.
[2019-09-10 10:37] LABS: AMMONIA < 10 umol/L (11-32)
[2019-09-10 10:38] LABS: POTASSIUM 2.9 mmol/L (3.5-5.1)
[2019-09-10 10:39] LABS: MAGNESIUM 0.8 mg/dL (1.8-2.4)
[2019-09-10 12:58] LABS: AMP/METHAMP Negative (Negative); BARBITURATES Negative (Negative); BENZODIAZEPINES Negative (Negative); COCAINE Negative (Negative); METHADONE Negative (Negative); OPIATES Negative (Negative); PCP Negative (Negative); THC Negative (Negative)
[2019-09-10 16:23] VITALS: BP 112/62
--- NOTE | 2019-09-10 19:22 | NUR ---
ASSUSMED CARE OF PT APPROX 1100. PT TRANSFERED TO [facility]. MEDICATIONS GIVEN CHARTED. ELECTROLYTES REPLACED PER PROTOCOL. SAFTEY PRECAUTIONS UTILIZED, HOURLY ROUNDED. PT CALLS FOR NEEDS. PT HAS BEEN SLEEPING FOR MOST OF THIS SHIFT.
[2019-09-10 20:00] VITALS: BP 154/65
[2019-09-11] VITALS: BP 140/47
--- NOTE | 2019-09-11 02:26 | NUR ---
PT ALERT ORIENTED. RESTING QUIETLY THIS SHIFT. ON RA. TELEMETRY SHOWS SR. VITAMIN BAG INFUSING AT 100MLS/HR. MAG AND K LEVEL BACK AT 3.3 & 4.5 RESPECTIVLY. SCHEDULED ATIVAN GIVEN. PAIN MEDICATION GIVEN ONCE. ERIN IN POSTERIOR R SIDE OF HEAD OPEN TO AIR. WCTM
[2019-09-11 04:00] VITALS: BP 138/69
[2019-09-11 08:00] VITALS: BP 168/73
[2019-09-11 12:30] VITALS: BP 139/74
--- NOTE | 2019-09-11 15:43 | NUR ---
ASSUSMED CARE OF PT APPROX 0730. REASSESSMENT COMPLETED CHARTED. MEDICATIONS GIVEN CHARTED. SAFTEY PRECAUTIONS IN PLACE, HOURLY ROUNDING. PT UP WITH STAND BY ASSIST TO THE BATHROOM. PT HAD NEW IV PLACED THIS AFTERNOON CHARTED. PT SLEEPING FOR MOST OF THE SHIFT.
[2019-09-11 16:03] VITALS: BP 133/70
[2019-09-11 20:00] VITALS: BP 170/94
[2019-09-12] VITALS (7 sets, daily range): BP systolic 162–195; BP diastolic 87–103
--- NOTE | 2019-09-12 02:21 | NUR ---
ASSUMED CARE OF PATIENT AT 1900. VS, AFEBRILE. C/O HEADACHE. PRN PAIN MEDS GIVEN. SCHEDULED ATIVAN GIVEN WELL, PATIENT RESTING THROUGH THE NIGHT. NO S/S OF DISTRESS. ALCOHOL USE DISCUSSD, DOES NOT THINK SHE DRINK "THAT MUCH". IS CONCERNED THAT SHE STILL HAS A UTI. WAITING ON URINE SAMPLE TO REPEAT UA. POC GOALS IN PLACE. WORKING TOWARDS THEM.
[2019-09-12 05:16] LABS: CREATININE 0.9 mg/dL (0.6-1.3); MAGNESIUM 1.5 mg/dL (1.8-2.4); PHOSPHORUS* 3.6 mg/dL (2.5-4.9); POTASSIUM 4.2 mmol/L (3.5-5.1)
[2019-09-12 06:06] LABS: URINE BILIRUBIN NEGATIVE (Negative); URINE BLOOD TRACE (Negative); URINE CLARITY CLEAR; URINE COLOR YELLOW; URINE GLUCOSE-RANDOM NEGATIVE (Negative); URINE KETONES NEGATIVE (Negative); URINE LEUKOCYTES-REFLEX 1+ (Negative); URINE NITRITE-REFLEX NEGATIVE (Negative); URINE PROTEIN NEGATIVE (Negative); URINE SPECIFIC GRAVITY <= 1.005 (1.005-1.030); URINE UROBILINOGEN 0.2 E.U./dl (0.2-1.0)
[2019-09-12 06:27] LABS: BACTERIA-REFLEX >30 Many /HPF (None Seen); CASTS None Seen /LPF (None Seen); CRYSTALS None Seen /LPF (None Seen); MUCUS 0-3 Light strn/LPF (None Seen); SQUAMOUS 0-3 Few /LPF (0-3); URINE RBC 3-10 Few /HPF (0-2); URINE WBC-REFLEX 6-15 Few /HPF (0-5)
--- NOTE | 2019-09-12 09:15 | NUR ---
INITAL ASSESSMENT COMPLETED CHARTED. VSS. TRACING SR ON MONITOR. PT LISANDRO PAIN, SOA, CP, N/V/D. REFER TO COMPUTER CHARTING FOR FURTHER DETAIL. HOURLY ROUNDING AND FALL PRECAUTIONS IN PLACE FOR PT SAFETY. CLWR.
--- NOTE | 2019-09-12 12:35 | NUR ---
Pt is A&O. Resides at home alone. Independent. No DME. Hx of [facility]. No hx of SNF. Support family. Pt states that she does wear a Life Alert necklace. Goal is home at ma. No needs anticipated.
--- NOTE | 2019-09-12 17:01 | EKG ---
[place] [address] ELECTROCARDIOGRAM REPORT Name: ANGELINA RIVERA Room: [address] ADM IN M.R.#: [id number] Admission: 09/10/19 Attend Phys: Ochoa Santos Discharge: Date of : 46 Report #: [id number] THIS REPORT FOR: //name// [facility] ED Test Date: 2019-09-09 Test Time: 22:48:54 Pat Name: ANGELINA MIGUEL Department: Room: [address] Gender: F Sensor Specialist: [place] : 1950 Requested By: Danni Toledo Order Number: [id number] MD: Tariq Dias Measurements Intervals [place] Rate: 62 P: 92 NC: 161 QRS: -18 QRSD: 101 T: 34 QT: 428 QTc: 435 Interpretive Statements Sinus rhythm Borderline left axis deviation Nonspecific T abnormalities, anterior leads Compared to ECG 03/05/2019 06:20:55 No significant changes Electronically Signed On 09-12-2019 17:01:13 TOWER OBSERVER by Tariq Dias [email or web address] <ELECTRONICALLY SIGNED> By: Tariq Dias MD, [facility] 09/12/19 1701 2248 2248 Tariq Dias MD, [facility] /EPI
[2019-09-13] VITALS (8 sets, daily range): BP systolic 141–211; BP diastolic 87–107
--- NOTE | 2019-09-13 05:15 | NUR ---
ASSUMED CARE OF PATIENT AT 1900. BP REMAINS ELEVATED. PHYSICIAN NOTIFIED, ORDERS RECIEVED FOR CLONIDINE PATCH AND DC FLUIDS. PATIENT C/O OF PERSISTENT HEADACHE. PRN PAIN MEDS GIVEN ABLE. DOES NOT APPEAR TO BE WITHDRAWING FROM ALCOHOL. WORKING TOWARDS POC GOALS.
--- NOTE | 2019-09-13 09:17 | NUR ---
ASSUMED CARE OF PATIENT THIS AM AT 0730. PATIENT IS ALERT AND ORIENTED X 4.SHE C/O CONTINUED HEADACHE THIS AM. HER BP IS ELEVATED THIS AM. PATIENT ASSISTED UP TO THE BATHROOM. HER GAIT IS SOMEWHAT UNSTEADY. TELE SHOWS NSR. WILL CONTINUE TO MONITOR ETOH WD SX.
[2019-09-14 04:07] VITALS: BP 147/76
--- NOTE | 2019-09-14 05:38 | NUR ---
PT CARE ASSUMED AT 1930. ALERT AND ORIENTED X4. C/O PAIN, MEDICATION GIVEN PER EMAR. BP ELEVATED AT MN, PROVIDER AWARE. CALL LIGHT WITHIN REACH AND BED IN LOW POSITION. HOURLY ROUNDING DONE FOR PT SAFETY.
[2019-09-14 08:00] VITALS: BP 136/93
[2019-09-14] MEDS ORDERED: KEFLEX500 M1 PO (12:34)
[2019-09-14] MEDS ORDERED: PRENATAL PO (12:34)
[2019-09-14] MEDS ORDERED: VITAMIN B-1100 M1 PO (12:34)
--- NOTE | 2019-09-14 15:16 | NUR ---
Pt to have colon tomorrow.
[2019-09-14 16:00] VITALS: BP 180/92
[2019-09-14 19:40] VITALS: BP 151/85
[2019-09-14 23:33] VITALS: BP 148/88
[2019-09-15 04:01] VITALS: BP 180/83
[2019-09-15 05:00] VITALS: BP 150/71
--- NOTE | 2019-09-15 05:13 | NUR ---
PT CARE ASSUMED AT 1930. SAT MAINTAINED IN RA. ALERT AND ORIENTED X4. C/O PAIN AND NAUSEA, MEDICATION GIVEN PER EMAR. CALL LIGHT WITHIN REACH AND BED IN LOW POSITION. HOURLY ROUNDING DONE FOR PT SAFETY.
[2019-09-15 08:00] VITALS: BP 141/78
--- NOTE | 2019-09-15 12:55 | CON ---
[address] [address] CONSULTATION Name: MIGUELANGELINALULU STODDARD Room: [address] IN M.R.#: [id number] Admission: 09/10/19 Attend Phys: Ochoa Santos Discharge: Date of : 46 Report #: [id number] THIS REPORT FOR: //name// CC: Darline Elizabeth DICTATED BY: Caitlin Rosales [facility] DATE OF SERVICE: 09/13/2019 Please note at the time of this dictation, the patient was seen and physically examined by myself. REASON FOR CONSULTATION: Postprandial pain. HISTORY OF PRESENT ILLNESS: This is a 68-year-old female who presented to the Emergency Room after tripping and falling, however, it was noted on admission her blood alcohol level was 347 and hit her head. All of her CTs were negative at that time and she also was noted to have UTI and was currently being treated for that as well. In talking with the patient, she has had ongoing postprandial pain for several months, which she states she has associated nausea and occasional vomiting with no bright red blood or coffee ground emesis. She states she will have some upper abdominal pain and she does get full very quickly with this as well. The patient also was complaining that she has bouts of constipation for a couple of days and then she will have diarrhea and then the cycle will continue to repeat itself. She does take Metamucil on a daily basis, but nothing else for her bowels. She has never had an EGD and colonoscopy was in 2005 that just showed diverticulosis in the sigmoid colon. The patient does state she does have some issues with acid reflux and does take medicine for that, but is not having any issues with that at the present time. ALLERGIES: IODINE, MORPHINE, CODEINE, ASPIRIN, METHOTREXATE, FENTANYL, ZOFRAN, HONEY, BROVANA. MEDICATIONS: From home include Eliquis, Benadryl, K-Dur, Pulmicort, Neurontin, Spiriva, Protonix, Requip, Toprol, Zocor and hydrochlorothiazide. PAST MEDICAL HISTORY: Hypertension, GERD, COPD, history of alcoholic pancreatitis. PAST SURGICAL HISTORY: Appendectomy, cholecystectomy, lumbar laminectomy. She has got a spinal nerve stimulator in her ovaries and tubes have been removed. FAMILY HISTORY: Father colon cancer and 3 [place] [address] CONSULTATION Name: ANGELINA RIVERA Room: [address] IN [facility]#: [id number] Admission: 09/10/19 Attend Phys: Ochoa Santos Discharge: Date of : 46 Report #: [id number] SOCIAL HISTORY: Denies any tobacco use, alcohol use, positive. Three highballs likely per day. Negative for any illegal drug use. REVIEW OF SYSTEMS: Twelve-point review of systems is essentially negative except what is mentioned in the HPI. PHYSICAL EXAMINATION: VITAL SIGNS: Temperature 36.7, pulse 64, respirations 17, blood pressure 204/107. HEART: Regular rate and rhythm. LUNGS: Diminished, but clear. ABDOMEN: Soft, positive bowel sounds in all 4 quadrants, discomfort in the upper quads. LABORATORY DATA: Hemoglobin is 11.9, white count is 5.4, platelets 230. GFR is 62. LFTs are normal. Abdominal x-ray showed increased constipation, but normal gas pattern prior cholecystectomy. PT 10.6, INR is 1. Her alcohol level on admission was greater than 347. IMPRESSION: 1. Postprandial pain. 2. Nausea, occasional vomiting. 3. Early satiety. 4. Constipation followed with diarrhea. 5. Family history of colon cancer, father and 3 paternal aunts. 6. Alcohol abuse. 7. Anticoagulant therapy, Eliquis. PLAN: 1. Unable to perform this test during her hospitalization due to lack of working equipment. She will need to get scheduled for a 4-hour gastric emptying test as an outpatient. 2. The patient is overdue for colonoscopy and this too can be scheduled as an outpatient. 3. If her GET is normal, then we will add an EGD and colonoscopy at that time as an outpatient. 4. Further recommendations to be made after the procedures have all been performed and recommended the patient to take a stool softener daily to help with her bowels. Thank you for allowing us to participate in this patient's care. Please do not hesitate to call with any questions in regard to this consult. <ELECTRONICALLY SIGNED> By: Sarah Castle MD 09/15/19 1255 1102 [id number] Castle MD /nt
[2019-09-15 13:10] VITALS: BP 146/85
--- NOTE | 2019-09-15 14:07 | NUR ---
CALL RECIEVED FROM [facility] CONCERNING PT HR. PT HR AT TIME 155. PT FOUND WALKING ASHLEY WITH PHYSICAL THERAPY. WHEN ASSESSED IN PT ROOM PT C/O DIZZINESS,SOA. PT PLACED IN BED AND SOA WENT AWAY QUICKLY. [facility]
--- NOTE | 2019-09-15 16:08 | NUR ---
I have reviewed the documentation by JESUS PRABHAKAR from 09/15/19 to 09/15/19 and I concur with it. EMILY HOWE
[2019-09-15 16:20] VITALS: BP 174/95
[2019-09-15 19:40] VITALS: BP 136/77
--- NOTE | 2019-09-15 19:59 | NUR ---
PT IS RESTING COMFORTABLY AT THIS TIME. NO C/O NAUSEA. PT STILL C/O DIZZINESS AND PAIN. VSS ON RA. IV SL. PT TOLERATING PO APPRORPIATELY. PT IS NOW SBA WITH WALKER. FALL PRECAUTIONS IN PLACE.
[2019-09-16 00:08] VITALS: BP 121/72
[2019-09-16 04:07] VITALS: BP 129/70
--- NOTE | 2019-09-16 04:48 | NUR ---
PT CARE ASSUMED AT 1930. SAT MAINTAINED IN RA. ALERT AND ORIENTED X4. CALL LIGHT WITHIN REACH AND BED IN LOW POSITION. C/O PAIN AND NAUSEA MEDICATION GIVEN PER EMAR. HOURLY ROUNDING DONE FOR PT SAFETY.
[2019-09-16 08:35] VITALS: BP 139/80
--- NOTE | 2019-09-16 11:00 | NUR ---
PATIENT COMPLAINED OF HEADACHE - NOT TIME FOR MEDICATION TO BE GIVEN. RN SPOKE TO PATIENT AND SHE NOTED AT HOME SHE TAKES ALEVE TYLENOL AND IBUPROFEN MAKE HER ITCHY. RN SPOKE WITH DR. MCCOY - ORDERED NAPROXEN 500MG EVERY 6 HOURS.
[2019-09-16] MEDS ORDERED: SENNA PLUS TAB1 EACH PO (11:29)
[2019-09-16] MEDS ORDERED: KEFLEX500 M1 PO (11:42)
[2019-09-16 11:47] VITALS: BP 139/80
[2019-09-16] MEDS ORDERED: CATAPRES-TTS 31 EAC1 TRANSDERM (13:30)
[2019-09-16] MEDS ORDERED: MACROBID 100 M100 M1 PO (13:30)
--- NOTE | 2019-09-16 13:45 | NUR ---
RN REMOVED 4 ERIN FROM THE BACK OF THE PATIENT'S HEAD WITH DIRECTION FROM DR. MCCOY. ALL ERIN WERE REMOVED WITHOUT INCIDENT NOR COMPLAINTS FROM THE PATIENT.
--- NOTE | 2019-09-16 14:13 | NUR ---
RN PAGED DR. MCCOY AT 1413 TO PROVIDE CLARIFICATION ON SCRIPT ORDERS FOR THE PATIENT'S CLONIDINE PATCH - VERIFIED SCRIPT WAS SENT TO THE PATIENTS PHARMACY.
[2019-09-16 14:14] VITALS: BP 139/80
--- NOTE | 2019-09-16 14:23 | NUR ---
Pt discharging to home today, faxed dc orders to [facility]
--- NOTE | 2019-09-16 14:45 | NUR ---
RN REVIEWED D/C INSTRUCTIONS AND NEW MEDICATIONS WITH PATIENT - DENIED QUESTIONS.
[2019-09-16 15:30] VITALS: BP 139/80
--- NOTE | 2019-09-16 15:30 | NUR ---
PATIENT DISCHARGED FROM THE HOSPITAL AT 1530. RN AND PATIENT REVIEWED ALL DISCHARGE INSTRUCTIONS AND NEW MEDICATIONS - NO QUESTIONS ASKED. PATIENT WAS TAKEN TO POV VIA WHEELCHAIR AND ALL BELONGINGS SENT WITH.
== END 2019-09-16 15:30 | disposition home health service (06) | DRG 92 ==
LOC: M.ERS 22:37 → M.TBA-ER 09-10 01:56 → M.2W 09-10 01:56 → M.ORTHSURG 09-10 04:22 → M.2W 09-10 11:08
PROVIDERS: Emergency Medicine; Internal Medicine; ADMIT Family Medicine
DX: G92 Toxic encephalopathy (principal); S22.079A Unspecified fracture of T9-T10 vertebra, initial encounter for closed fracture; E87.1 Hypo-osmolality and hyponatremia; N12 Tubulo-interstitial nephritis, not specified as acute or chronic; Z71.41 Alcohol abuse counseling and surveillance of alcoholic; S01.01XA Laceration without foreign body of scalp, initial encounter; D12.2 Benign neoplasm of ascending colon; D12.5 Benign neoplasm of sigmoid colon; K57.10 Diverticulosis of small intestine without perforation or abscess without bleeding; F32.9 Major depressive disorder, single episode, unspecified; J44.9 Chronic obstructive pulmonary disease, unspecified; I10 Essential (primary) hypertension; K21.9 Gastro-esophageal reflux disease without esophagitis; G25.81 Restless legs syndrome; R68.81 Early satiety; K59.00 Constipation, unspecified; I95.1 Orthostatic hypotension; E87.6 Hypokalemia; K44.9 Diaphragmatic hernia without obstruction or gangrene; K22.2 Esophageal obstruction; R13.14 Dysphagia, pharyngoesophageal phase; M19.90 Unspecified osteoarthritis, unspecified site; I16.0 Hypertensive urgency; K57.30 Diverticulosis of large intestine without perforation or abscess without bleeding; K64.8 Other hemorrhoids; F10.129 Alcohol abuse with intoxication, unspecified; G47.33 Obstructive sleep apnea (adult) (pediatric); G89.29 Other chronic pain; Z96.641 Presence of right artificial hip joint; Z89.021 Acquired absence of right finger(s); Z90.722 Acquired absence of ovaries, bilateral; Z79.899 Other long term (current) drug therapy; Z79.01 Long term (current) use of anticoagulants; Z88.6 Allergy status to analgesic agent; Z88.5 Allergy status to narcotic agent; Z88.8 Allergy status to other drugs, medicaments and biological substances; Z90.710 Acquired absence of both cervix and uterus; Z80.0 Family history of malignant neoplasm of digestive organs; Z87.891 Personal history of nicotine dependence; Z23 Encounter for immunization; Z90.49 Acquired absence of other specified parts of digestive tract; W18.39XA Other fall on same level, initial encounter; Y93.89 Activity, other specified; Y92.89 Other specified places as the place of occurrence of the external cause; Y99.8 Other external cause status

== ENCOUNTER 2019-10-09 15:28 | Emergency (ER) | payer OTHER ==
[~2019-10-09] VITALS: Ht 160 cm; Wt 72.1 kg
[~2019-10-09 15:28] MED LIST changes: +CATAPRES-TTS 31 EAC1 TRANSDERM; +KEFLEX500 M1 PO; +MACROBID 100 M100 M1 PO; +MACROBID 100 M100 MG PO; +PRENATAL PO; +SENNA PLUS TAB1 EACH PO; +VITAMIN B-1100 M1 PO
[2019-10-09 16:22] LABS: URINE BILIRUBIN NEGATIVE (Negative); URINE BLOOD 1+ (Negative); URINE CLARITY CLEAR; URINE COLOR YELLOW; URINE GLUCOSE-RANDOM NEGATIVE (Negative); URINE KETONES NEGATIVE (Negative); URINE LEUKOCYTES-REFLEX 1+ (Negative); URINE NITRITE-REFLEX NEGATIVE (Negative); URINE PROTEIN NEGATIVE (Negative); URINE UROBILINOGEN 0.2 E.U./dl (0.2-1.0)
[2019-10-09 16:34] LABS: SQUAMOUS >10 Many /LPF (0-3)
[2019-10-09 16:35] LABS: URINE WBC-REFLEX 0-5 Rare /HPF (0-5)
[2019-10-09 16:36] LABS: TRANSITIONAL EPITHEL CELL 0-3 Few /LPF (None Seen); URINE RBC 0-2 Rare /HPF (0-2)
[2019-10-09 16:37] LABS: BACTERIA-REFLEX 1-9 Few /HPF (None Seen); CASTS None Seen /LPF (None Seen); CRYSTALS None Seen /LPF (None Seen); MUCUS 0-3 Light strn/LPF (None Seen)
[2019-10-09 17:07] LABS: ABSOLUTE BASOPHILS 0.1 thou/uL (0.0-0.2); ABSOLUTE EOSINOPHILS 0.1 thou/uL (0.0-0.7); ABSOLUTE LYMPHOCYTES 1.7 thou/uL (0.8-5.3); ABSOLUTE MONOCYTES 0.5 thou/uL (0.0-1.2); ABSOLUTE NEUTROPHILS 2.8 thou/uL (1.6-8.1); BASOPHILS 1.1 %; EOSINOPHILS 1.9 %; HEMATOCRIT 34.6 % (37.0-47.0); HEMOGLOBIN 11.9 gm/dL (12.0-15.0); LYMPHOCYTES 33.7 %; MCH 33.6 pg (26.0-34.0); MCHC 34.5 g/dL (28.0-37.0); MCV 97.4 fL (80.0-100.0); MPV 8.1 fl. (7.2-11.1); NUCLEATED RBCS 0 /100WBC; PLATELET COUNT* 243 thou/uL (150-400); POLYS 53.3 %; RBC 3.55 mil/uL (4.20-5.00); RDW-CV 14.6 % (10.5-14.5); WBC 5.2 thou/uL (4.0-11.0)
[2019-10-09 17:18] LABS: CALCIUM 7.7 mg/dL (8.5-10.1); CREATININE 0.7 mg/dL (0.6-1.3); POTASSIUM 3.4 mmol/L (3.5-5.1)
[2019-10-09 17:29] LABS: AMP/METHAMP Negative (Negative); BARBITURATES Negative (Negative); BENZODIAZEPINES Negative (Negative); COCAINE Negative (Negative); METHADONE Negative (Negative); OPIATES POSITIVE (Negative); PCP Negative (Negative); THC Negative (Negative)
[2019-10-09 17:33] LABS: TOTAL BILIRUBIN 0.2 mg/dL (<0.1-1.0); TOTAL PROTEIN 6.3 g/dL (6.4-8.2)
[2019-10-09] MEDS ORDERED: ONDANSETRON ODT4 MG PO (18:44)
[2019-10-09] MEDS ORDERED: KEFLEX500 M1 PO (18:44)
[2019-10-09 19:09] VITALS: BP 162/87
--- NOTE | 2019-10-12 13:56 | EKG ---
[place] [address] ELECTROCARDIOGRAM REPORT Name: ANGELINA RIVERA Room: [facility]#: [id number] Admission: 10/09/19 Attend Phys: Discharge: 10/09/19 Date of : 46 Date of Service: 10/09/19 1650 Report #: [id number] THIS REPORT FOR: cc: Consuelo Stallings MD, K. Gay MD Holkins, John M. MD [facility] ~ THIS REPORT FOR: //name// [facility] ED Test Date: 2019-10-09 Test Time: 16:50:08 Pat Name: ANGELINA RIVERA Department: Room: Gender: F Rn Traveling: : 1950 Requested By: Mary Duarte Order Number: [id number] MD: Serge Samayoa Measurements Intervals [place] Rate: 67 P: 29 [place]: 136 QRS: -33 QRSD: 93 T: 18 QT: 419 QTc: 443 Interpretive Statements Sinus rhythm Left axis deviation Borderline T abnormalities, anterior leads Compared to ECG 09/09/2019 22:48:54 No significant changes Electronically Signed On 10-10-2019 16:04:22 SWISS TYPE SCREW MACHINE OPERATOR by Serge Samayoa [email or web address] <ELECTRONICALLY SIGNED> By: Serge Samayoa MD, FACC 10/10/19 1604 1650 1650 Serge Samayoa MD, [facility] /EPI
== END 2019-10-09 19:09 | disposition home or self-care (01) ==
LOC: M.ERS 15:28
PROVIDERS: Physician Assistant
DX: H61.21 Impacted cerumen, right ear (principal); R10.31 Right lower quadrant pain; R30.0 Dysuria; I10 Essential (primary) hypertension; K21.9 Gastro-esophageal reflux disease without esophagitis; G25.81 Restless legs syndrome; J44.9 Chronic obstructive pulmonary disease, unspecified; Z90.49 Acquired absence of other specified parts of digestive tract; Z96.641 Presence of right artificial hip joint; Z88.5 Allergy status to narcotic agent; Z88.6 Allergy status to analgesic agent; Z91.041 Radiographic dye allergy status; Z88.8 Allergy status to other drugs, medicaments and biological substances; Z79.899 Other long term (current) drug therapy

== ENCOUNTER → 2019-10-19 | Outpatient (CLI) | payer OTHER ==
[~2019-10-19] MED LIST changes: +ONDANSETRON ODT4 MG PO
== END ==
LOC: M.NUC 06:58
DX: R10.32 Left lower quadrant pain (principal); R11.2 Nausea with vomiting, unspecified

== ENCOUNTER → 2020-03-06 | Outpatient (CLI) | payer OTHER | LOC: M.LAB 15:53 | PROVIDERS: ATTEND Orthopaedic Surgery | DX: Z01.818 Encounter for other preprocedural examination (principal); M67.432 Ganglion, left wrist; M65.4 Radial styloid tenosynovitis [de Quervain]; Z11.59 Encounter for screening for other viral diseases ==

== ENCOUNTER 2020-05-13 14:16 | Emergency (ER) | payer OTHER ==
[~2020-05-13] VITALS: Ht 160 cm; Wt 72.6 kg
[2020-05-13 14:54] LABS: URINE BILIRUBIN NEGATIVE (Negative); URINE BLOOD 1+ (Negative); URINE CLARITY CLEAR; URINE COLOR YELLOW; URINE GLUCOSE-RANDOM NEGATIVE (Negative); URINE KETONES NEGATIVE (Negative); URINE LEUKOCYTES-REFLEX NEGATIVE (Negative); URINE NITRITE-REFLEX NEGATIVE (Negative); URINE PROTEIN NEGATIVE (Negative)
[2020-05-13 15:04] LABS: SQUAMOUS >10 Many /LPF (0-3); URINE RBC 3-10 Few /HPF (0-2); URINE WBC-REFLEX 0-5 Rare /HPF (0-5)
[2020-05-13 15:05] LABS: CASTS None Seen /LPF (None Seen); CRYSTALS None Seen /LPF (None Seen); MUCUS None Seen strn/LPF (None Seen)
[2020-05-13 15:28] LABS: ABSOLUTE LYMPHOCYTES 0.7 thou/uL (0.8-5.3); ABSOLUTE MONOCYTES 0.3 thou/uL (0.0-1.2); ABSOLUTE NEUTROPHILS 1.5 thou/uL (1.6-8.1); BASOPHILS 0.5 %; EOSINOPHILS 0.1 %; HEMOGLOBIN 12.8 gm/dL (12.0-15.0); LYMPHOCYTES 28.6 %; MCH 35.5 pg (26.0-34.0); MCHC 35.6 g/dL (28.0-37.0); MCV 99.8 fL (80.0-100.0); MONOCYTES 11.3 %; MPV 8.1 fl. (7.2-11.1); NUCLEATED RBCS 0 /100WBC; PLATELET COUNT* 159 thou/uL (150-400); POLYS 59.5 %; RDW-CV 13.8 % (10.5-14.5); WBC 2.6 thou/uL (4.0-11.0)
[2020-05-13 15:29] LABS: AMP/METHAMP Negative (Negative); BARBITURATES Negative (Negative); BENZODIAZEPINES Negative (Negative); COCAINE Negative (Negative); METHADONE Negative (Negative); OPIATES POSITIVE (Negative); PCP Negative (Negative); THC Negative (Negative)
[2020-05-13 15:35] LABS: CALCIUM 7.4 mg/dL (8.5-10.1); CREATININE 0.9 mg/dL (0.6-1.3)
[2020-05-13 15:39] LABS: ALBUMIN 3.1 g/dL (3.4-5.0); TOTAL BILIRUBIN 0.4 mg/dL (<0.1-1.0); TOTAL PROTEIN 6.3 g/dL (6.4-8.2)
[2020-05-13 15:40] LABS: POTASSIUM 2.8 mmol/L (3.5-5.1)
[2020-05-13] MEDS ORDERED: MEDROLDOSEPACK PO (15:58)
[2020-05-13] MEDS ORDERED: ZPAK PO (15:58)
[2020-05-13] MEDS ORDERED: ONDANSETRON HCL4 M2 PO (15:58)
[2020-05-13] MEDS ORDERED: VENTOLIN HFA 1818 GM INH (16:47)
[2020-05-13 17:17] VITALS: BP 150/60
--- NOTE | 2020-05-14 17:41 | EKG ---
[place] [address] ELECTROCARDIOGRAM REPORT Name: ANGELINA RIVERA Room: [facility]#: [id number] Admission: 05/13/20 Attend Phys: Discharge: 05/13/20 Date of : 46 Date of Service: 05/13/20 1457 Report #: [id number] THIS REPORT FOR: //name// [facility] ED Test Date: 2020-05-13 Test Time: 14:57:05 Pat Name: ANGELINA RIVERA Department: Room: Gender: F Lan Manager: [facility] : 1950 Requested By: Estefania Anaya Order Number: [id number] MD: Tariq Dias Measurements Intervals [place] Rate: 66 P: 36 FL: 168 QRS: -42 QRSD: 116 T: -20 QT: 430 QTc: 451 Interpretive Statements Sinus rhythm Left axis deviation Nonspecific T abnormalities, inferior leads Compared to ECG 10/09/2019 16:50:08 No significant changes noted Electronically Signed On 05-14-2020 17:40:49 CDT by Tariq Dias [email or web address] <ELECTRONICALLY SIGNED> By: Tariq Dias MD, [facility] 05/14/20 1740 1457 1457 Tariq Dias MD, [facility] /EPI
== END 2020-05-13 17:17 | disposition home or self-care (01) ==
LOC: M.ERS 14:16
PROVIDERS: Nurse Practitioner Family
DX: U07.1 COVID-19 (principal); E87.6 Hypokalemia; J84.10 Pulmonary fibrosis, unspecified; J44.9 Chronic obstructive pulmonary disease, unspecified; I10 Essential (primary) hypertension; K21.9 Gastro-esophageal reflux disease without esophagitis; G25.81 Restless legs syndrome; Z90.49 Acquired absence of other specified parts of digestive tract; Z96.641 Presence of right artificial hip joint; Z88.5 Allergy status to narcotic agent; Z91.041 Radiographic dye allergy status; Z88.6 Allergy status to analgesic agent; Z88.8 Allergy status to other drugs, medicaments and biological substances; Z91.030 Bee allergy status; Z79.899 Other long term (current) drug therapy

== ENCOUNTER 2020-08-09 09:37 | Inpatient (IN) | payer OTHER ==
[~2020-08-09] VITALS: Ht 160 cm; Wt 72.6 kg
[~2020-08-09 09:37] MED LIST changes: +ZPAK PO
[2020-08-09 09:39] VITALS: BP 132/72
[2020-08-09 10:44] LABS: MCH 34.4 pg (26.0-34.0); RDW-CV 13.4 % (10.5-14.5); WBC 11.4 thou/uL (4.0-11.0)
[2020-08-09 10:45] LABS: HEMATOCRIT 40.3 % (37.0-47.0); HEMOGLOBIN 13.8 gm/dL (12.0-15.0); MCHC 34.2 g/dL (28.0-37.0); MCV 100.6 fL (80.0-100.0); MPV 8.6 fl. (7.2-11.1); NUCLEATED RBCS 0 /100WBC; RBC 4.01 mil/uL (4.20-5.00)
[2020-08-09 10:54] LABS: CALCIUM 8.2 mg/dL (8.5-10.1); CREATININE 0.8 mg/dL (0.6-1.3)
[2020-08-09 10:55] LABS: POTASSIUM 2.4 mmol/L (3.5-5.1)
[2020-08-09 10:58] LABS: ALBUMIN 3.2 g/dL (3.4-5.0); TOTAL BILIRUBIN 0.9 mg/dL (<0.1-1.0); TOTAL PROTEIN 6.6 g/dL (6.4-8.2)
[2020-08-09 11:32] LABS: URINE BILIRUBIN NEGATIVE (Negative); URINE BLOOD 1+ (Negative); URINE CLARITY CLEAR; URINE COLOR YELLOW; URINE GLUCOSE-RANDOM NEGATIVE (Negative); URINE KETONES TRACE (Negative); URINE LEUKOCYTES-REFLEX TRACE (Negative); URINE NITRITE-REFLEX NEGATIVE (Negative); URINE PROTEIN NEGATIVE (Negative); URINE UROBILINOGEN 0.2 E.U./dl (0.2-1.0)
[2020-08-09 11:38] LABS: SQUAMOUS >10 Many /LPF (0-3)
[2020-08-09 11:39] LABS: CASTS None Seen /LPF (None Seen); MUCUS None Seen strn/LPF (None Seen); URINE RBC 0-2 Rare /HPF (0-2); URINE WBC-REFLEX 0-5 Rare /HPF (0-5)
[2020-08-09 11:40] LABS: CRYSTALS None Seen /LPF (None Seen)
[2020-08-09 11:47] LABS: ABSOLUTE LYMPHOCYTES 0.3 thou/uL (0.8-5.3); ABSOLUTE MONOCYTES 0.1 thou/uL (0.0-1.2); ABSOLUTE NEUTROPHILS 10.9 thou/uL (1.6-8.1)
[2020-08-09 11:48] LABS: PLATELET ESTIMATE ADEQUATE
[2020-08-09 12:17] LABS: PLATELET COUNT* 250 thou/uL (150-400)
[2020-08-09 16:31] VITALS: BP 96/75
--- NOTE | 2020-08-09 17:06 | EKG ---
[place] [address] ELECTROCARDIOGRAM REPORT Name: ANGELINA RIVERA Room: [address] ADM IN M.R.#: [id number] Admission: 08/09/20 Attend Phys: Dunia Cueto Discharge: Date of : 46 Date of Service: 08/09/20 0943 Report #: [id number] THIS REPORT FOR: //name// [facility] ED Test Date: 2020-08-09 Test Time: 09:43:29 Pat Name: ANGELINA RIVERA Department: Room: [facility] Gender: F Artist Model: [facility] : 1950 Requested By: Sherman Hernandez Order Number: [id number] MD: Cesar Deshpande Measurements Intervals [place] Rate: 95 P: 65 NM: 121 QRS: -40 QRSD: 95 T: 65 QT: 430 QTc: 541 Interpretive Statements Sinus rhythm Left axis deviation Abnormal R-wave progression, early transition Nonspecific repol abnormality, diffuse leads Prolonged QT interval Compared to ECG 05/13/2020 14:57:05 Prolonged QT interval now present Electronically Signed On 08-09-2020 17:06:48 TACKING MACHINE OPERATOR by Cesar Deshpande [email or web address] <ELECTRONICALLY SIGNED> By: Cesar Deshpande MD, FACC 08/09/20 1706 0943 0943 Cesar Deshpande MD, FACC /EPI
[2020-08-09 20:00] VITALS: BP 95/44
[2020-08-10] VITALS: BP 97/60
[2020-08-10 02:23] LABS: MAGNESIUM 2.5 mg/dL (1.8-2.4); POTASSIUM 3.3 mmol/L (3.5-5.1)
[2020-08-10 04:00] VITALS: BP 101/57
[2020-08-10 08:00] VITALS: BP 92/43
[2020-08-10 12:12] VITALS: BP 116/65
[2020-08-10 16:15] VITALS: BP 98/55
[2020-08-10 20:00] VITALS: BP 156/79
[2020-08-11] VITALS (7 sets, daily range): BP systolic 122–194; BP diastolic 51–108
[2020-08-11 04:20] LABS: ABSOLUTE LYMPHOCYTES 1.8 thou/uL (0.8-5.3); ABSOLUTE MONOCYTES 0.4 thou/uL (0.0-1.2); BASOPHILS 0.4 %; HEMATOCRIT 35.1 % (37.0-47.0); LYMPHOCYTES 24.4 %; MCH 34.1 pg (26.0-34.0); MCHC 33.3 g/dL (28.0-37.0); MCV 102.5 fL (80.0-100.0); MONOCYTES 5.6 %; MPV 8.3 fl. (7.2-11.1); NUCLEATED RBCS 0 /100WBC; PLATELET COUNT* 181 thou/uL (150-400); POLYS 69.6 %; RBC 3.43 mil/uL (4.20-5.00); RDW-CV 13.4 % (10.5-14.5); WBC 7.2 thou/uL (4.0-11.0)
[2020-08-11 04:56] LABS: HEMOGLOBIN 11.7 gm/dL (12.0-15.0)
[2020-08-12] VITALS: BP 153/80
[2020-08-12 04:00] VITALS: BP 146/60
[2020-08-12 08:00] VITALS: BP 159/98
[2020-08-12 11:00] VITALS: BP 159/98
[2020-08-12] MEDS ORDERED: BENZONATATE100 MG PO (15:41)
[2020-08-12] MEDS ORDERED: CEFDINIR300 MG PO (15:41)
[2020-08-12] MEDS ORDERED: ZOFRAN4 MG PO (15:42)
[2020-08-12 15:57] VITALS: BP 159/98
== END 2020-08-12 16:25 | disposition home or self-care (01) | DRG 871 ==
LOC: M.ERS 09:37 → M.TBA-ER 12:13 → M.2W 12:13
PROVIDERS: Emergency Medicine Emergency Medical Services; ADMIT Internal Medicine; ATTEND Internal Medicine
DX: A41.9 Sepsis, unspecified organism (principal); J15.9 Unspecified bacterial pneumonia; G93.41 Metabolic encephalopathy; A04.8 Other specified bacterial intestinal infections; K76.0 Fatty (change of) liver, not elsewhere classified; I10 Essential (primary) hypertension; E83.42 Hypomagnesemia; K29.00 Acute gastritis without bleeding; G25.81 Restless legs syndrome; E87.6 Hypokalemia; K21.9 Gastro-esophageal reflux disease without esophagitis; M41.9 Scoliosis, unspecified; M94.0 Chondrocostal junction syndrome [Tietze]; Z20.828 Contact with and (suspected) exposure to other viral communicable diseases; Z96.641 Presence of right artificial hip joint; Z90.49 Acquired absence of other specified parts of digestive tract; Z79.899 Other long term (current) drug therapy; Z88.5 Allergy status to narcotic agent; Z88.1 Allergy status to other antibiotic agents; Z88.8 Allergy status to other drugs, medicaments and biological substances; Z91.018 Allergy to other foods; Z87.891 Personal history of nicotine dependence

== ENCOUNTER → 2021-02-01 | Outpatient (CLI) | payer OTHER ==
[~2021-02-01] MED LIST changes: +BENZONATATE100 MG PO; +CEFDINIR300 MG PO
== END ==
LOC: M.ULTRA 11:00
PROVIDERS: ATTEND Nurse Practitioner Family
DX: M79.89 Other specified soft tissue disorders (principal); R22.0 Localized swelling, mass and lump, head